=== PATIENT | male | born 1955 | race Hispanic/Latino ===

== ENCOUNTER 2019-05-07 16:19 | Inpatient (IN) ==
[2019-05-07] MEDS ORDERED: M.V.I.-12 10 ML, FOLIC ACID 1 MG, MAGNESIUM SULFATE 1 GM, THIAMINE 100 MG in NS 1,000 ML IV ONE (16:36)
[2019-05-07] MEDS ORDERED: VANCOMYCIN 1 GM/NS 1 GM/250 ML IVPB IV ONE (16:36)
[2019-05-07] MEDS ORDERED: ZOSYN 4.5 GM in NS 100 ML IV ONE (16:36)
[2019-05-07 17:44] LABS: ALLEN TEST YES; BE -2.7 mmoll (-3.0-3.0); BLOOD TYPE ARTERIAL; HCO3-(ACT) 22.7 mmoll (20.0-26.0); METHB 1.3 % (0.0-1.5); O2(CT) 17.8 mL/dL (15.0-23.0); O2HB 93.3 % (95.0-99.0); PCO2(98.6) 30 mmHg (35-45); PO2(98.6) 67 mmHg (60-100); SAMPLE BLOOD; SAO2 96.2 % (95.0-100.0); THB 13.6 g/dL (11.5-17.4); pH(98.6) 7.44 (7.35-7.45)
[2019-05-07 17:46] LABS: MODALITY ROOM AIR
[2019-05-07] MEDS ORDERED: HUMULIN R IV ONE (18:08)
--- NOTE | 2019-05-07 18:39 | Diag Imaging Result Doc PS360 ---
EXAM: CHEST-PORTABLE INDICATION: AMS TECHNIQUE: One view COMPARISON: None. FINDINGS: Inspiration is suboptimal. The lungs are grossly clear. There is no discrete pleural fluid collection or pneumothorax. There is cardiomegaly. Central vasculature is unremarkable. IMPRESSION: Cardiomegaly but no definite acute chest pathology by plain radiograph. Electronically signed by Cornel Manule 05/07/2019 6:37 PM
--- NOTE | 2019-05-07 18:42 | PROVIDER DOCUMENTATION ---
This chart was entered by Vandana Briones Scribe, acting as scribe for Waqar Caputo MD. HPI-Rash/Wound/ReCheck - General Chief Complaint: Extremity Pain Stated Complaint: WOUND TO FOOT Time Seen by Provider: 05/07/19 16:24 Source: EMS, other (friend) Allergies/Adverse Reactions: Allergies Allergy/AdvReac Type Severity Reaction Status Date / Time No Known Allergies Allergy Verified 05/07/19 17:23 Home Medications: Home Medication List Medication Instructions Recorded Confirmed Last Taken Type Metformin [Glucophage] 500 mg PO BID 05/07/19 05/07/19 Unknown History - History of Present Illness-Dermatology Nature of Presenting Problem: Patient is a 63 year old male who presents to the ED via EMS with skin wounds to bilateral feet. EMS states family reported the wounds have gradually worsened. Friend states patient does not take his diabetic medications. EMS states patient's FSBS was 425. Location: reports: feet (bilateral) Quality: reports: none Severity: reports: moderate Onset/Duration: reports: gradual Timing: reports: still present, getting worse Context/Associated Symptoms: reports: other (skin wounds) Locality of [place]: Home Similar Symptoms Previously?: Yes Recently seen or treated by another doctor?: Yes Review of Systems - Adult - REVIEW OF SYSTEMS - ADULT Constitutional: reports: no symptoms reported Eyes: reports: no symptoms reported Ears, Nose, Mouth & Throat: reports: no symptoms reported Cardiovascular: reports: no symptoms reported Respiratory: reports: no symptoms reported Gastrointestinal: reports: no symptoms reported Genitourinary: reports: no symptoms reported Musculoskeletal: reports: no symptoms reported Integumentary: reports: skin sores/ulcer (skin wounds to bilateral feet.). denies: hives, itching Neurological: reports: no symptoms reported Psychiatric: reports: no symptoms reported Endocrine: reports: no symptoms reported Hematologic/Lymphatic: reports: no symptoms reported Allergic/Immunologic: reports: no symptoms reported All Other Systems: Reviewed and Negative Past History - Adult - PAST MEDICAL HISTORY-ADULT Review of Records: reports: Nursing Assessment Review Major Childhood Illnesses: reports: denies history Cardiovascular: reports: denies history Respiratory: reports: denies history Gastrointestinal: reports: denies history Obstetrical/Gynecological: reports: denies history Genitourinary: reports: denies history Musculoskeletal: reports: denies history Neurological: reports: denies history Psychiatric: reports: denies history Endocrine/Immune: reports: Diabetes Other Conditions: reports: denies history - PRIOR SURGERIES/PROCEDURES Surgical/Procedure History: reports: reviewed, not pertinent - IMMUNIZATION STATUS Childhood Immunizations: See Nurse Assessment Flu Vaccine: See Nurse Assessment - FAMILY HISTORY Family History: reviewed, not pertinent - SOCIAL HISTORY Smoking: denies Substance Use: denies Physical Exam-General - PHYSICAL EXAM-ADULT Initial Vital Signs Reviewed: Yes - CONSTITUTIONAL General Appearance: alert, no apparent distress. negative: lethargic - HEAD, EARS, NOSE, MOUTH & THROAT HENMT: normocephalic/atraumatic, moist mucous membranes. negative: angioedema - RESPIRATORY Respiratory: chest non-tender, lungs clear, normal breath sounds. negative: crackles, rhonchi, wheezing - CARDIOVASCULAR Cardiovascular: normal peripheral pulses, regular rate, rhythm. negative: tachycardia - GASTROINTESTINAL (ABDOMEN) Abdominal Exam: normal bowel sounds, non tender, soft. negative: guarding, rebound - MUSCULOSKELETAL Extremity: erythema (left foot extending to ankle.), swelling (base of left foot.), other (gangrene present to left 2nd toe. 2 cm skin ulcer to planter aspect of left foot about 1 cm deep. discoloration to right foot. 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 2 cm skin ulcer to planter aspect of left foot about 1 cm deep. discoloration to right foot.) - PSYCHIATRIC Psych/Mental Status: normal mood/affect. negative: anxious, paranoid Progress - PLAN OF CARE/RESULTS Progress/Plan/Lab Results: Laboratory Results - last 24 hr 05/07/19 05/07/19 05/07/19 17:23 17:30 18:21 WBC 12.87 H RBC 4.59 L Hgb 13.3 L Hct 38.8 L MCV 84.5 MCH 29.0 MCHC 34.3 RDW Std Deviation 12.1 Plt Count 385 MPV 9.9 Immature Gran % (Auto) 0.5 Neut % (Auto) 79.3 H Lymph % (Auto) 8.6 L [place] % (Auto) 11.3 H Eos % (Auto) 0.0 Baso % (Auto) 0.3 Immature Gran # (Auto) 0.06 H Neut # (Auto) 10.21 H Lymph # (Auto) 1.11 L [place] # (Auto) 1.45 H Eos # (Auto) 0.00 Baso # (Auto) 0.04 PT INR PTT (Actin FS) Specimen Type ARTERIAL Sample Site R RADIAL pH 7.44 pCO2 30 L pO2 67 HCO3 22.7 Base Excess -2.7 Oxyhemoglobin 93.3 L ABG O2 Sat (Calculated) 17.8 ABG O2 Saturation 96.2 ABG Carboxyhemoglobin 1.70 ABG Methemoglobin 1.3 Varun Test YES A-a O2 Difference 45.0 Total Hemoglobin 13.6 Lactate 1.30 Blood Gas Modality ROOM AIR FiO2 % 21.0 POC Glucose 341 H Plasma Lactate 05/07/19 05/07/19 05/07/19 18:21 18:21 18:37 WBC RBC Hgb Hct MCV MCH MCHC RDW Std Deviation Plt Count MPV Immature Gran % (Auto) Neut % (Auto) Lymph % (Auto) [place] % (Auto) Eos % (Auto) Baso % (Auto) Immature Gran # (Auto) Neut # (Auto) Lymph # (Auto) [place] # (Auto) Eos # (Auto) Baso # (Auto) PT 16.6 H INR 1.32 PTT (Actin FS) 35.0 Specimen Type Sample Site pH pCO2 pO2 HCO3 Base Excess Oxyhemoglobin ABG O2 Sat (Calculated) ABG O2 Saturation ABG Carboxyhemoglobin ABG Methemoglobin Varun Test A-a O2 Difference Total Hemoglobin Lactate Blood Gas Modality FiO2 % POC Glucose 288 H Plasma Lactate 1.6 Orders Category Date Time Status Finger Stick Blood Sugar (ED) DIRECTED Care 05/07/19 16:32 Active Nursing- Obtain EKG once Care 05/07/19 16:32 Active Saline Loc NOW Care 05/07/19 16:32 Active Wound Care DIRECTED Care 05/07/19 17:04 Active Diabetic Diet Diet 05/07/19 17:16 Active NPO Except MEDICATIONS Diet 05/08/19 00:01 Active CHEST-PORTABLE [RAD] Stat Exams 05/07/19 16:34 Completed FOOT COMPLETE LEFT [RAD] Stat Exams 05/07/19 16:35 Completed ABG [RESP] Routine Lab 05/07/19 17:30 Completed ACETONE SERUM [CHEM] Stat Lab 05/07/19 18:21 Received ALCOHOL BLOOD Stat Lab 05/07/19 18:21 Received AMYLASE [CHEM] Stat Lab 05/07/19 18:21 Received BLOOD CULTURE [BLDCUL] Stat Lab 05/07/19 18:22 Results C REACTIVE PROT QUANT [CHEM] Stat Lab 05/07/19 18:21 Received CBC WITH ELECTRONIC DIFF [HEME] Stat Lab 05/07/19 18:21 Completed COMPREHENSIVE METABOLIC PANEL [CHEM] Stat Lab 05/07/19 18:21 Received LACTATE, PLASMA [CHEM] Stat Lab 05/07/19 18:21 Completed LIPASE [CHEM] Stat Lab 05/07/19 18:21 Received MAGNESIUM [CHEM] Stat Lab 05/07/19 18:21 Received PRO B-NATRIURETIC PEPTIDE Stat Lab 05/07/19 18:21 Received PROTIME WITH INR [COAG] Stat Lab 05/07/19 18:21 Completed PTT [COAG] Stat Lab 05/07/19 18:21 Completed SED RATE [HEME] Stat Lab 05/07/19 18:21 Received TROPONIN T Stat Lab 05/07/19 18:21 Received URINALYSIS W/POSS RFLX CULT [URINALYSIS] Stat Lab 05/07/19 16:34 Uncollected URINE DRUG SCREEN Stat Lab 05/07/19 16:34 Uncollected WOUND CULTURE INC GRAM STAIN [RM] Stat Lab 05/07/19 16:37 Uncollected phos [PHOSPHORUS] [CHEM] Stat Lab 05/07/19 18:21 Received Insulin Human Regular [Humulin R] Med 05/07/19 18:08 Discontinued 10 unit IV NOW ONE Mvi [M.v.i.-12] 10 ml Med 05/07/19 16:36 Discontinued Folic Acid 1 mg Magnesium Sulfate 1 gm Thiamine 100 mg 0.9% Sodium Chloride Inj [Ns] 1,000 ml IV NOW Piperacillin/Tazobactam [Zosyn] 4.5 gm Med 05/07/19 16:36 Discontinued 0.9% Sodium Chloride Inj [Ns] 100 ml IV NOW Vancomycin 1 gm/Ns Med 05/07/19 16:36 Discontinued 1 gm in 250 ml IV NOW EKG [EKG] Stat Ther 05/07/19 16:32 Ordered Result Diagrams: 05/07/19 18:21 - REASSESSMENT Reassessment #1 Time Reassessed: 18:39 Status: improving (Given IVF bolus, banana bag, IV vanc/zosyn, IV insulin) - EKG 1 Time of EKG reading by physician:: 18:40 EKG Read and Signed by:: Waqar Caputo EKG Interpretation (*Must complete 3 of following elements*): Normal Rate: 83 Rhythm: NSR [place]: normal QRS: normal [place] Interval: normal ST Wave: normal - CONSULTS/PCP/HOSPITALIST Notification #1 *Consult/PCP/Hospitalist*: Dr. Sandoval Time Discussed: 16:58 Reason/Comments: Dr. Caputo consulted with Dr. Sandoval about patient. Consult Disposition: Will see in ED (plans on BKA or similar tomorrow. Asks to admit to hospitalist, NPO after midnight. Clean wounds with mari solutions and wet to dry dressing changes.) #2 Consult: KIM Driscoll hospitalist paged at [phone] Time Discussed: 18:54 (A[place]oto returned call) Consult Disposition: Will see in ED Departure - Departure Date of Disposition Decision: 05/07/19 Time of Disposition Decision: 18:40 DIAGNOSIS: Gangrene of left foot, Type 2 diabetes, uncontrolled, with cellulitis of foot Hyperglycemia due to type 2 diabetes mellitus Qualifiers: Diabetes mellitus senior living insulin use: without emt intermediate use Qualified Code(s): E11.65 - Type 2 diabetes mellitus with hyperglycemia Disposition: ADMITTED INPATIENT 09 Certified Medical Emergency: Emergent Condition: Serious Referrals and Follow-Ups: None,PCP [Primary Care Provider] - - Critical Care Note This patient required my direct & personal management of CC.: No Attestation - Physician/ JATINDER Attestation Patient care was provided by Advanced Practice Provider:: No The physician spent face to face time with patient:: Yes Advanced Practice Provider documentation review:: Supervising physician onsite and consulted in the evaluation and care of this patient. The physician did have a face to face encounter with the patient. This chart was documented by the indicated scribe, (Vandana Briones Scribe) and accurately reflects the services I performed and decisions made by Patito lynch Kent A., MD, as attested by the provider's signature.
--- NOTE | 2019-05-07 18:44 | Diag Imaging Result Doc PS360 ---
EXAM: FOOT COMPLETE LEFT INDICATION: osteomyelitis TECHNIQUE: 3 views COMPARISON: None. FINDINGS: There is extensive soft tissue edema around the foot and there is subcutaneous gas at the plantar and dorsal aspect of the forefoot. There is bony erosion at the head of the proximal phalanx of the second toe indicating osteomyelitis. However, it could be chronic. Please correlate clinically. There is evidence of prior fracture that has healed involving the third metatarsal. There also potentially erosive changes at the plantar aspect of the base of the proximal phalanx of the first toe. This is best seen on the lateral view. There are bulky fragmented undersurface calcaneal osteophytes and osteophytes at the dorsum of the midfoot. No discrete fracture is appreciated. IMPRESSION: 1.Extensive soft tissue edema with subcutaneous emphysema at the dorsum and plantar aspect of the midfoot indicating cellulitis. 2.Erosive changes at the head of the second proximal phalanx and at the plantar base of the first proximal phalanx, which is suspicious for osteomyelitis. Electronically signed by Cornel Manuel 05/07/2019 6:41 PM
[2019-05-07 18:46] LABS: INR 1.32; PROTIME 16.6 Seconds (11.0-16.0)
[2019-05-07 18:48] LABS: BASO# 0.04 X1000 (0.0-0.2); BASO% 0.3 % (0.0-0.8); HEMATOCRIT 38.8 % (42.0-52.0); HEMOGLOBIN 13.3 g/dL (14.0-18.0); IMM GRAN# 0.06 X1000 (0.0-0.04); IMM GRAN% 0.5 % (0.0-0.5); LYMPH# 1.11 X1000 (1.2-3.4); LYMPH% 8.6 % (20.5-51.1); MCHC 34.3 g/dL (33-37); MCV 84.5 FL (81-99); MONO# 1.45 X1000 (0.11-0.59); MONO% 11.3 % (1.7-9.3); MPV 9.9 FL (7.4-10.4); NEUT# 10.21 X1000 (1.4-6.5); NEUT% 79.3 % (42.2-75.2); PLT 385 X1000 (130-400); RBC 4.59 XMIL (4.7-6.1); RDW 12.1 % (11.5-14.5); WBC 12.87 X1000 (4.8-10.8)
[2019-05-07 19:00] LABS: ESTIMATED GFR > 60
[2019-05-07 19:08] LABS: AGAP 15; ALB/GLOB RATIO 0.5; ALBUMIN 2.6 g/dL (3.5-5.0); ALKALINE PHOSPHATASE 138 U/L (32-122); AMYLASE 27 U/L (20-200); BUN 13 mg/dL (8-22); C REACTIVE PROT QUANT 243.49 mg/L (0.00-5.00); CALCIUM 8.3 mg/dL (8.8-10.2); CHLORIDE 87 mmol/L (98-107); COSMO 265; CREATININE 0.7 mg/dL (0.7-1.2); GLUCOSE 373 mg/dL (70-104); GOT 55 U/L (10-34); GPT 45 U/L (10-44); LIPASE 28 U/L (13-60); PHOSPHORUS 2.7 mg/dL (2.7-4.5); POTASSIUM 4.2 mmol/L (3.5-5.1); SODIUM 124 mmol/L (136-145); TCO2 22 mmol/L (25-35); TOTAL BILIRUBIN 0.35 mg/dL (0.20-1.00); TOTAL PROTEIN 7.8 g/dL (6.3-8.3)
[2019-05-07 19:25] LABS: ACETONE SERUM SMALL (NEGATIVE)
--- NOTE | 2019-05-07 19:36 | GENERAL SURGERY CONSULTATION ---
DATE: 05/07/2019 REQUESTING PHYSICIAN: ER. REASON FOR CONSULTATION: Left foot diabetic foot ulcer. HISTORY OF PRESENT ILLNESS: A 63-year-old male presenting with a foot wound. He has had issues with wounds before. He has had previous amputations at outlying facilities in [place]. He is coming in for this wound. He is being currently evaluated by the emergency department. PAST MEDICAL HISTORY: Diabetes. PAST SURGICAL HISTORY: Previous amputations. ALLERGIES: None recorded. HOME MEDICATIONS: Being compiled. FAMILY HISTORY: Reviewed. SOCIAL: Reviewed. REVIEW OF SYSTEMS: Full 14 systems reviewed and negative except as specified in HPI. PHYSICAL EXAMINATION: Vital Signs: Patient is currently afebrile. His vital signs are stable. General: No acute distress. HEENT: Normocephalic, atraumatic. Pupils equal, round, and reactive to light. Mucous membranes moist. Oropharynx benign. Neck: Supple. Trachea midline. Cardiovascular: Regular rate and rhythm. Lungs: Grossly clear. Abdomen: Soft, nontender, nondistended. Extremities: Previous amputation noted to the right foot. The 4th and 5th toes appear to be amputated. Left foot has a wound to the plantar surface that penetrates pretty deep into the area. It is being cultured. There are ischemic changes noted to the distal aspects of the 2nd, 3rd, and 4th digits. There is swelling noted on the foot. Vascular: There is at least a biphasic dorsalis pedis to the right and triphasic posterior tibial to the right. On the left, there is at least a triphasic dorsalis pedis noted. Neurologic: Grossly intact. Skin: As noted above. LABORATORY: Pending. IMAGING: Pending. ASSESSMENT AND PLAN: A 63-year-old gentleman with likely diabetic foot ulcer with potential gangrene. 1. Diabetic foot ulcer with gangrene. At this time, he likely will need an amputation. We will need to make him n.p.o. and put him on strong antibiotics. He will be admitted by the hospitalist. Will clean the wound with Vashe for right now, but again, this will likely require some degree of debridement, if not an amputation. cc: Blair Sandoval MD
--- NOTE | 2019-05-07 19:46 | EKG Report ---
Test Performed on : 05/07/2019 6:31:04 PM Test Reason : short of breath Blood Pressure : / mmHG Vent. Rate : 085 BPM Atrial Rate : 085 BPM P-R Int : 122 ms QRS Dur : 070 ms QT Int : 358 ms P-R-T Axes : 061 038 050 degrees QTc Int : 426 ms Normal sinus rhythm. Normal ECG No previous ECGs available Unconfirmed Result
[2019-05-07 20:11] LABS: URINE SOURCE CLEAN CATCH
[2019-05-07 20:16] LABS: BILIRUBIN URINE NEGATIVE (NEGATIVE); BLOOD URINE TRACE (NEGATIVE); COLOR YELLOW; GLUCOSE URINE >1000 mg/dL (NEGATIVE); KETONE URINE 60 mg/dL (NEGATIVE); LEUKOCYTES URINE NEGATIVE (NEGATIVE); NITRITE URINE NEGATIVE (NEGATIVE); PROTEIN URINE 30 mg/dL (NEGATIVE); SP GRAVITY URINE 1.034; TURBIDITY URINE CLEAR (CLEAR); UROBILINOGEN URINE NORMAL (NORMAL)
[2019-05-07 20:20] LABS: UR EPITHELIAL CELLS <10 /HPF (<10); URINE BACTERIA NEGATIVE /HPF; URINE RBC <10 /HPF (<10); URINE WBC <10 /HPF (<10)
[2019-05-07 20:45] LABS: UR AMPHETAMINES QUAL NONE DETECTED (NONE DETECT); UR BARBITUATES QUAL NONE DETECTED (NONE DETECT); UR BENZODIAZEPIN QUAL NONE DETECTED (NONE DETECT); UR CANNABINOIDS QUAL NONE DETECTED (NONE DETECT); UR COCAINE QUAL NONE DETECTED (NONE DETECT); UR METHADONE QUAL NONE DETECTED (NONE DETECT); UR OPIATES QUAL NONE DETECTED (NONE DETECT); UR OXYCODONE QUAL NONE DETECTED (NONE DETECT); UR PCP QUAL NONE DETECTED (NONE DETECT)
[2019-05-07] MEDS ORDERED: TYLENOL PO PRN (21:05)
[2019-05-07] MEDS ORDERED: INVANZ 1 GM/NS 1 GM/50 ML IVPB IV SCH (21:05)
[2019-05-07] MEDS: HEPARIN SUBQ SCH (21:48)
[2019-05-07] MEDS: HUMALOG SUBQ SCH (21:49)
[2019-05-07] MEDS: LANTUS INSULIN SUBQ SCH (21:49)
[2019-05-07] MEDS: MORPHINE IV PRN (22:17)
[2019-05-07] MEDS: NS 1,000 ML IV SCH (22:17)
[2019-05-08] MEDS: OXY IR PO PRN (00:04)
[2019-05-08] MEDS: NS 1,000 ML IV SCH ×3 (05:05→12:22)
--- NOTE | 2019-05-08 05:14 | HISTORY AND PHYSICAL ---
PRIMARY CARE PHYSICIAN: None. REASON FOR ADMISSION: Left foot swelling and purulent discharge, which patient alleges has been ongoing for 2 weeks. He has also admits to having a preceding blister on the plantar surface of his foot and some fever and chills. Patient admits to having polyuria, polydipsia, intermittent blurred vision for several months. He also states that he had fever and chills yesterday which necessitated a visit to the ER at the behest of his friend. He admits thathe has very diminished sensation in his feet and has minimal pain in the left foot. Otherwise, he denies any cardiorespiratory, GI or complaints. He admits noncompliance with his medication. REVIEW OF SYSTEMS: 12 system review was done. Positive findings per HPI except he states that he may have inadvertently stepped on some foreign body several weeks ago on the left foot, but is not sure. FH : Pt. denies family history of DM SH: + tobacco and ETOH use. No illicit drugs. Labs Alcohol level is normal. Foot x-ray done showed extensive soft tissue edema with subcutaneous emphysema of the dorsum and plantar aspects of the midfoot, indicating cellulitis, with erosive changes of the head of the 2nd proximal phalanx and at the base of the 1st proximal phalanx, suspicious for osteomyelitis. Chest film essentially benign. PHYSICAL EXAMINATION: VITAL SIGNS: Heart rate is 96. The patient appears to be febrile to touch. Respiratory rate 16. His blood pressure is 130/70. GENERAL: He is a middle-aged man who is calm, pleasant, oriented to person and time. Normal mood and affect. HEAD: Normocephalic, atraumatic. EYES: PERRLA. EOMI. Anicteric and not pale. ENT: Exam is grossly normal. No central cyanosis. NECK: Supple. No JVD or carotid bruit. No thyromegaly. CHEST: Clear on auscultation. Good air entry both lung funes. CARDIOVASCULAR: First and second sounds heard. No gallops, murmurs, or rubs. Rhythm is regular. ABDOMEN: Full, soft, nontender. No mass or -megaly. Bowel sounds are normal. RECTAL: Exam deferred at this time. EXTREMITIES: The patient has grade 1 to 2 clubbing of his fingers. No peripheral cyanosis. No profound edema of extremities distally. Pulses good volume, regular, symmetrical. The patient's right foot shows area of amputation of the 4th and 5th toes. There appears to have some interdigital macerated skin between the 2nd and 3rd toes. No evidence of gangrene. No swelling. The left foots is is exuding profound purulent discharge from Mid L plantar area measuring about 2x3cm. This area appears to be a ruptured bullae. The patient does not seem to be in any pain or distress which,for me, signifies some degree of severe diabetic neuropathy. 2nd and 3rd L toes are also macerated with mild dorsal erythema of the L foot,but no swelling noted. NEUROLOGICAL: Exam otherwise is grossly normal. No focal deficits appreciated. SKIN: See above, but otherwise unremarkable elsewhere. MUSCULAR: Exam grossly normal. ASSESSMENT: 1. Severe diabetic foot infection of the left foot, including osteomyelitis, gangrene of the 2nd toe, with possible deep tissue myositis. We will plan to start patient on Invanz and vancomycin for broad-spectrum coverage. Dr. Snadoval was consulted to see patient and schedule patient for surgery for extensive debridement and possible amputation of 1 or more toes. 2. Type 2 diabetes, uncontrolled. Start patient on intravenous fluids, Lantus, and sliding scale. Discontinue metformin. The patient will need extensive diabetic education. A1c is pending. cc: Nina Torres MD MTDAlondra
--- NOTE | 2019-05-08 06:20 | GENERAL SURGERY PROGRESS NOTE ---
DATE: 05/08/2019 SUBJECTIVE: Patient is having some pain in his left leg. OBJECTIVE: Vital Signs: Patient is currently afebrile. His vital signs are stable. General: No acute distress. HEENT: Normocephalic, atraumatic. Pupils equal, round, reactive to light. Mucous membranes moist. Oropharynx benign. Neck: Supple. Trachea midline. Cardiovascular: Regular rate and rhythm. Lungs: Grossly clear. Abdomen: Soft, nontender, nondistended. Extremities: Left leg with dressing intact. No significant change. Vascular: All extremities perfused. Neurologic: Grossly intact. Skin: Wound as noted above. LABORATORY: Reviewed from last night. Electrolytes have significant abnormalities including a sodium of 124. X-ray suggests osteomyelitis. ASSESSMENT AND PLAN: A 63-year-old male with diabetic foot ulcer left foot. 1. Diabetic foot ulcer. At this time, he likely needs an amputation. Potential is amputation of multiple toes versus [id number] amputation, even potentially need to have a wound VAC on him if we do just the toes, which we may start with 1st, to see how it heals. 2. Hyponatremia. At this time with significant decrease in his sodium may not be able to do surgery. Will have to follow up with Anesthesia. Will try to post him for today. cc: Blair Sandoval MD
[2019-05-08 06:35] LABS: BASO# 0.03 X1000 (0.0-0.2); BASO% 0.3 % (0.0-0.8); EOS# 0.05 X1000 (0.0-0.7); EOS% 0.5 % (0.0-10.0); HEMATOCRIT 35.7 % (42.0-52.0); HEMOGLOBIN 12.2 g/dL (14.0-18.0); IMM GRAN# 0.05 X1000 (0.0-0.04); IMM GRAN% 0.5 % (0.0-0.5); LYMPH# 1.34 X1000 (1.2-3.4); LYMPH% 13.6 % (20.5-51.1); MCH 29.3 PG (27-31); MCHC 34.2 g/dL (33-37); MCV 85.6 FL (81-99); MONO% 11.1 % (1.7-9.3); MPV 9.7 FL (7.4-10.4); NEUT# 7.31 X1000 (1.4-6.5); PLT 352 X1000 (130-400); RBC 4.17 XMIL (4.7-6.1); RDW 12.1 % (11.5-14.5); WBC 9.88 X1000 (4.8-10.8)
[2019-05-08] MEDS: HUMALOG SUBQ SCH ×5 (06:44→20:07)
[2019-05-08 06:50] LABS: HEMOGLOBIN A1C 11.6 % (4.8-6.0)
[2019-05-08 07:10] LABS: AGAP 12; BUN 9 mg/dL (8-22); CALCIUM 7.8 mg/dL (8.8-10.2); CHLORIDE 97 mmol/L (98-107); COSMO 265; CREATININE 0.5 mg/dL (0.7-1.2); ESTIMATED GFR > 60; GLUCOSE 165 mg/dL (70-104); POTASSIUM 3.5 mmol/L (3.5-5.1); SODIUM 131 mmol/L (136-145); TCO2 22 mmol/L (25-35)
[2019-05-08] MEDS: MORPHINE IV PRN (08:20)
[2019-05-08] MEDS ORDERED: VANCOMYCIN IV PER PHARMACY MISC SCH (08:45)
[2019-05-08] MEDS ORDERED: ZOSYN 4.5 GM in NS 100 ML IV SCH (08:45)
[2019-05-08] MEDS ORDERED: XYLOCAINE-MPF 2% ONE (09:28)
[2019-05-08] MEDS ORDERED: DIPRIVAN 1% ONE (09:28)
[2019-05-08] MEDS ORDERED: VERSED ONE (09:42)
--- NOTE | 2019-05-08 10:09 | PROGRESS NOTE ---
DATE: 05/08/2019 SUBJECTIVE: This morning Mr. Gonsalez refers to be doing well. Still has some pain in the left foot. He has been evaluated by Surgery and there is a potential possibility of surgery today. OBJECTIVE: Vital Signs: Blood pressure is 142/83, pulse of 79, respiration is 16, temperature is 98.4 degrees. General Exam: Mr. Gonsalez is a 63-year-old male. He is in bed. No cardiopulmonary distress. HEENT: Mucosa is pink and moist. Anicteric. Acyanotic. Neck: Supple. Chest: Clear to auscultation. No crepitations. No rhonchi. Cardiovascular: Regular rate and rhythm. No murmurs, no rubs, no gallops. GI: Abdomen is soft, nontender. Bowel sounds present. Extremities: No pedal edema. The left lower extremity is in sterile wrap. When you take it out, it is remarkable swollen. The foot is slightly swollen. The 2nd and the 3rd toes look purplish. The worse is the 2nd toe. There is a foul smell oozing purulence on the 2nd toe just medial to the big toe. LABORATORY DATA: WBC is down to 9.88, hemoglobin is 12.2, platelet count of 352. Chemistry is also reviewed. Sodium is 131, potassium is 3.5, chloride 97, bicarbonate is 22, glucose is 165. Patient's A1c is 11.6. So far, blood culture is growing gram-positive cocci. IMAGING STUDIES: A chest x-ray was unremarkable. An x-ray of the left foot shows extensive soft tissue edema with subcutaneous emphysema. There is also erosive changes at the head of the 2nd proximal phalanx and the base of the 1st proximal phalanx, which is suspicious for osteomyelitis. ASSESSMENT: 1. Diabetic foot infection of the left lower extremity associated with possible osteomyelitis. The patient is currently on intravenous antibiotics. We have changed the Invanz to Zosyn for a broader coverage, including Pseudomonas. We have also added vancomycin for methicillin- resistant Staphylococcus aureus. I have consulted Infectious Disease to help us with also the management. 2. Severe uncontrolled diabetes mellitus with presenting A1c of 11.6. It appears Mr. Gonsalez was only on metformin. Obviously, this has been withheld. We will continue with insulin regimen over here during the hospital course. I think eventually he is going to be needing insulin at least for the short term. 3. Suspected osteomyelitis of the 2nd and the 1st proximal phalanx of the toes. Surgery has evaluated Mr. Gonsalez, and there is a potential for surgery today. It appears there is contemplation of either doing multiple digit amputation versus below-knee amputation. 4. Hyponatremia, improving. 5. Gram-positive cocci in blood 1/2; unsure if it is contamination. However, looking at the foot, it is very possible there is a true infection. The foot Gram stain also shows some gram- positives. Patient is already on vancomycin and Infectious Disease has been consulted. We are pending the final culture report, including the identification and sensitivity. PLAN: In general, I think Mr. Gonsalez is fairly stable. He is a very bad diabetic, severely uncontrolled, who comes in with a diabetic foot which Surgery plans to intervene on today. His current EKG shows normal sinus rhythm. His chest x-ray is unremarkable. He denies any chest pain. He denies any chronic heart conditions. No chronic liver. No chronic kidney pathologies. He is currently not on any anticoagulation. We think Mr. Gonsalez is medically stable for the surgical intervention. cc: Tru Page MD
[2019-05-08] MEDS ORDERED: FENTANYL ONE (10:18)
[2019-05-08] MEDS: LANTUS INSULIN SUBQ SCH (12:20)
[2019-05-08] MEDS: HEPARIN SUBQ SCH ×3 (12:22→20:07)
--- NOTE | 2019-05-08 13:30 | OPERATIVE NOTE ---
PROCEDURE DATE : 05/08/2019 PREOPERATIVE DIAGNOSIS: Osteomyelitis of left foot. POSTOPERATIVE DIAGNOSIS: Osteomyelitis of left foot. PROCEDURES PERFORMED: 1. Transmetatarsal amputation of second and third left lower extremity digits. 2. Debridement of skin and subcutaneous tissue and muscle, 20 sq cm. 3. Placement of wound VAC. SURGEON: Dr. Blair Sandoval STRADDLE TRUCK OPERATOR: None. ANESTHESIA: IV MAC plus spinal. FINDINGS: Purulence noted in the wound tracking above the metatarsal heads. COMPLICATIONS: None at the time of this dictation. ESTIMATED BLOOD LOSS: 5 mL. SPECIMEN REMOVED: Culture and 2 toes. DRAINS: None. Wound VAC placed. BRIEF HISTORY: This is a 63-year-old male with wound to his left foot. He needed to have it amputated. We elected to try to go for toe amputations since he had good perfusion to try to avoid below the knee, but he may ultimately require below the knee, and we discussed this with the patient. We discussed the risks, benefits and alternatives. All questions were answered. DESCRIPTION OF PROCEDURE: After informed consent was obtained, the patient was brought to the operating theatre, placed in supine position. Prior to positioning, a spinal anesthesia was placed without complication. The left leg was prepped and draped in sterile fashion. After the time-out, we turned our attention to the left leg. There was purulence draining and gangrene in the toes, second and third digits. We made an incision above these, carried down to the bone. We transected off the proximal phalange. I removed the toes completely. He had a plantar wound that tracked with purulence to the metatarsals and purulence that was going above the metatarsals on the dorsal aspect. We made an incision over both of these to get rid of the purulence. I elected to transect the metatarsal heads midway of the second and third digits. We then debrided skin, subcutaneous tissue and muscle sharply and excised it with approximately 20 sq cm. Once we debrided back to healthy tissue, I elected to place a wound VAC. We placed it with black sponge and Tegaderm and closed it, bridged it over to the dorsal aspect of the foot and connected to wall suction and held seal. The patient tolerated the procedure well and was transferred back to the recovery room. cc: Blair Sandoval MD
[2019-05-08] MEDS: ZOSYN 3.375 GM in NS 50 ML IV SCH ×3 (15:23→20:09)
--- NOTE | 2019-05-08 15:33 | INFECTIOUS DISEASE CONSULT REP ---
DATE: 05/09/2019 The patient had just come back from surgery and I was unable to get a history from him. No family member was present. The information I did get was from the patient computer. CONCLUSION: The patient had amputation of toes 2 and 3 on the left foot. The VAC has been placed on the foot. The x-ray showed both cellulitis and osteomyelitis of the left foot. The patient's Gram stain from the left foot showed gram-positive cocci gram-negative cocci and gram-positive rods. Cultures are pending. RECOMMENDATIONS: I agree with treating the patient with vancomycin and Zosyn pending culture results. DISCUSSION: The patient had been having swelling and purulent drainage from his left foot. He also was having fever and chills. His laboratory studies show a CBC with a white count of 9880, hemoglobin 12.2, platelet count 352,000, creatinine is 0.5 GFR is greater than 60 alkaline phosphatase is 138. Chest x-ray shows cardiomegaly and clear lungs. X-ray of the left foot showed cellulitis and osteomyelitis. PAST MEDICAL HISTORY/REVIEW OF SYSTEMS: This was taken from Dr. Torres's history and physical. The patient had been having polyuria, polydipsia, blurred vision. The patient also had diminished sensation in his feet and there was minimal pain in the left foot. He has been noncompliant with his medications. MEDICATIONS: The only home medication the patient took was Glucophage. PHYSICAL EXAMINATION: Vital Signs: Temperature is 98.2 degrees, pulse 121, respirations 18, blood pressure 149/93. Patient weighs 144 pounds. General: This is an ill-appearing middle-aged male. He has just returned from surgery and he is very lethargic. Head/eyes/ears/nose/throat: No drainage noted from the nose or ears. Neck: No stiffness. Lungs: Clear to auscultation. Cardiovascular: Regular heart rate. Abdomen: Soft and nontender. Extremities: The patient's right foot had 3 toes remaining. There was no there was some erythema but no drainage coming from the foot. The patient's left foot had the VAC on where toes 2 and 3 were amputated. Neurologic: The patient is lethargic. He had just come from surgery. There was no tremor. Integument: No rash. Thank you for the consult. cc: Terrence Ordonez MD
[2019-05-08] MEDS ORDERED: VANCOMYCIN 1,650 MG in NS 250 ML IV ONE (17:00)
[2019-05-08] MEDS: PERIDEX MT SCH (20:07)
[2019-05-09] MEDS: OXY IR PO PRN ×3 (00:48→20:25)
[2019-05-09] MEDS: ZOSYN 3.375 GM in NS 50 ML IV SCH ×4 (03:20→20:22)
[2019-05-09] MEDS: HUMALOG SUBQ SCH ×4 (06:51→20:36)
[2019-05-09 07:06] LABS: HEMATOCRIT 32.4 % (42.0-52.0); HEMOGLOBIN 10.9 g/dL (14.0-18.0); MCH 29.7 PG (27-31); MCHC 33.6 g/dL (33-37); MCV 88.3 FL (81-99); MPV 9.6 FL (7.4-10.4); RBC 3.67 XMIL (4.7-6.1); RDW 12.7 % (11.5-14.5); WBC 9.04 X1000 (4.8-10.8)
[2019-05-09 07:21] LABS: AGAP 11; ALBUMIN 1.8 g/dL (3.5-5.0); BUN 7 mg/dL (8-22); CALCIUM 7.6 mg/dL (8.8-10.2); CHLORIDE 99 mmol/L (98-107); COSMO 266; CREATININE 0.7 mg/dL (0.7-1.2); ESTIMATED GFR > 60; GLUCOSE 160 mg/dL (70-104); PHOSPHORUS 2.9 mg/dL (2.7-4.5); POTASSIUM 3.6 mmol/L (3.5-5.1); SODIUM 132 mmol/L (136-145); TCO2 22 mmol/L (25-35)
[2019-05-09] MEDS: MORPHINE IV PRN (07:53)
[2019-05-09] MEDS: LANTUS INSULIN SUBQ SCH (09:44)
[2019-05-09] MEDS: PERIDEX MT SCH ×2 (09:44→20:22)
[2019-05-09] MEDS: HEPARIN SUBQ SCH ×2 (09:45→20:22)
--- NOTE | 2019-05-09 12:17 | PROGRESS NOTE ---
DATE: 05/09/2019 SUBJECTIVE: This morning Mr. Gonsalez referred to be doing well. He underwent amputation of 2 digits of the lower right foot yesterday. OBJECTIVELY: Current vital signs: Blood pressure is 146/78, pulse of 73, respiration is 18, temperature is 98.2 degrees. General: Mr. Gonsalez is a 63-year-old gentleman. He is in bed, no distress. HEENT: Mucosa is pink and moist. Anicteric. Acyanotic. Neck: Supple. Chest: Good air entry bilaterally. There were no crepitations, no rhonchi. Cardiovascular: Regular rate and rhythm. No murmurs, no rubs, no gallops. Gastrointestinal: Abdomen was soft, nontender. Bowel sounds present. Extremities: No pedal edema. The left lower extremity is still in a sterile wrap, slightly swollen. The right lower extremity has amputation of the 2 lateral digits in the past. LABORATORY DATA: White cell count is 9.04, hemoglobin is 10.9, platelet count of 319,000. Chemistry is also reviewed, unremarkable. Glucose is down to 137. Blood cultures show 1 that has gram-negative carolina. The other one has both gram- positive and gram- negative. The foot culture showing gram negative x2. We are pending the cultures on the surgical specimen. CURRENT MEDICATIONS: Have all been reviewed. He is on vancomycin and Zosyn. ASSESSMENT: 1. Diabetic foot infection of the left lower extremity associated with osteomyelitis. The patient is status post amputation of the 2nd and 3rd digits of the lower extremity. 2. Gram-negative carolina and gram-positive cocci bacteremia, presumably from the diabetic foot. The patient is on Zosyn and vancomycin. Will be pending the ID and sensitivity of the pathogens. 3. Severe uncontrolled diabetes mellitus. Presenting A1c was 11.6. The patient is currently back on insulin regimen. Glucose is 137 this morning. We are going to continue with the current regimen. PLAN: In general, I think Mr. Gonsalez is doing fairly okay. He is day 1 post transmetatarsal amputation of the of the 2nd and 3rd digits on the left lower extremity. His white cell count has normalized. We are still pending the ID and sensitivity of the pathogens growing. He is currently on broad-spectrum IV antibiotics and on insulin regimen. cc: Tru Page MD [facility]
--- NOTE | 2019-05-09 14:28 | GENERAL SURGERY PROGRESS NOTE ---
DATE: 05/09/2019 SUBJECTIVE: He is doing generally well. The wound VAC did not seal, so it was removed. A Vashe gauze was placed in the wound. I unwrapped it today and looked at it. There was quite a bit of dark and necrotic tissue on the plantar aspect. The tissue between the toes in the area of resection looks okay. We will re-wrap his foot on a daily basis. We will continue with the antibiotic therapy. cc: Ender Grullon MD
[2019-05-09] MEDS: VANCOMYCIN 1,450 MG in NS 250 ML IV SCH (17:22)
[2019-05-10] MEDS: OXY IR PO PRN ×3 (03:14→17:40)
[2019-05-10] MEDS: ZOSYN 3.375 GM in NS 50 ML IV SCH ×2 (03:15→08:00)
[2019-05-10 06:37] LABS: HEMATOCRIT 31.4 % (42.0-52.0); HEMOGLOBIN 10.6 g/dL (14.0-18.0); MCH 29.4 PG (27-31); MCHC 33.8 g/dL (33-37); MCV 87.2 FL (81-99); MPV 9.3 FL (7.4-10.4); RBC 3.6 XMIL (4.7-6.1); RDW 12.5 % (11.5-14.5); WBC 8.21 X1000 (4.8-10.8)
[2019-05-10 06:59] LABS: SODIUM 130 mmol/L (136-145)
[2019-05-10 07:00] LABS: AGAP 9; ALBUMIN 1.7 g/dL (3.5-5.0); BUN 9 mg/dL (8-22); CALCIUM 7.8 mg/dL (8.8-10.2); CHLORIDE 98 mmol/L (98-107); COSMO 265; CREATININE 0.8 mg/dL (0.7-1.2); ESTIMATED GFR > 60; GLUCOSE 194 mg/dL (70-104); PHOSPHORUS 3.5 mg/dL (2.7-4.5); POTASSIUM 3.5 mmol/L (3.5-5.1); TCO2 23 mmol/L (25-35)
[2019-05-10] MEDS: HUMALOG SUBQ SCH ×7 (07:28→23:41)
[2019-05-10] MEDS: PERIDEX MT SCH ×2 (07:59→23:41)
[2019-05-10] MEDS: LANTUS INSULIN SUBQ SCH (08:00)
[2019-05-10] MEDS: HEPARIN SUBQ SCH ×2 (08:05→23:41)
--- NOTE | 2019-05-10 09:14 | GENERAL SURGERY PROGRESS NOTE ---
DATE: 05/10/2019 He is afebrile with stable hemodynamics. He still has an odor from his wound. There is quite a bit of necrotic-appearing tissue on the plantar aspect. His white count is normal. He may require more debridement of his foot. We currently are wrapping his foot using Vashe gauze since the wound VAC did not seal. Dr. Sandoval will return tomorrow for further evaluation and treatment. cc: Ender Grullon MD
--- NOTE | 2019-05-10 11:58 | PROGRESS NOTE ---
DATE: 05/10/2019 SUBJECTIVE: This morning, Mr. Gonsalez refers to be doing well. Still has some pains in the left foot. OBJECTIVE: Vital Signs: Blood pressure is 149/91, pulse of 69, respirations are 18, temperature is 98.1 degrees, the patient was saturating 98% on room air. General Examination: Mr. Gonsalez is a 63-year-old, gentleman. He was in bed. He did not seem to be in any distress. HEENT: Mucosa was pink and moist. Anicteric. Acyanotic. Neck: Supple. Chest: Good air entry bilaterally. There were no crepitations, no rhonchi. Cardiovascular: Regular rate and rhythm. No murmurs, no rubs, no gallops. GI: Abdomen was soft, nontender. Bowel sounds present. There was no hepatosplenomegaly. Extremities: No pedal edema. The left lower extremity wrap was taken down. The second and the third digits have been transmetatarsally amputated. The top wound looks very clean with very good granulation tissue. However, the plantar surface wound had some necrotic material and had some very foul smell. The right lower extremity had an old amputation of the fourth and the fifth digits. Laboratory Data: CBC is unremarkable except for normocytic anemia. Chemistry is also reviewed. Sodium is 130, the glucose is 194. Rest of chemistry is unremarkable. Patient's albumin is 1.7. So far, the foot culture from the wound swab grew Proteus mirabilis and Klebsiella pneumoniae. The blood culture grew Staphylococcus sciuri and also Sphingomonas paucimobilis. The second blood culture also grew Sphingomonas paucimobilis. The surgical specimen of the left foot is growing a gram-negative carolina. Anaerobes were not isolated. The patient's current medications have all been reviewed. He is on vancomycin per pharmacy protocol and Zosyn. ASSESSMENT: 1. Diabetic foot infection of the left lower extremity associated with osteomyelitis. The patient is status post second and third digits of the lower extremity transmetatarsally amputated. Culture has grown Proteus mirabilis and Klebsiella pneumoniae. From the swab, however, the surgical specimen itself is growing gram-negative carolina and we are pending the identification and sensitivity. 2. Sphingomonas paucimobilis and methicillin-resistant Staphylococcus aureus bacteremia. We think these were all also coming from the infected limb. The patient is on adequate antimicrobial coverage. Infectious disease is on board. 3. Severe uncontrolled diabetes mellitus with presenting A1c of 11.6. The patient is currently on insulin regimen. 4. Normocytic anemia, presumably due to anemia of chronic disease. Hemoglobin and hematocrit are stable. 5. Protein calorie malnutrition with albumin of 1.7. The patient is on a diabetic diet and also liquacel supplement. Dietary is also on board. PLAN: In general, I think Mr. Gonsalez is doing a lot better. We will continue with the current antimicrobial coverage which seems to cover all the pathogens that are growing both in his blood and in the foot. We have ordered repeat blood cultures. We have also gone up on his insulin demands for better glycemic control and we will follow up with further recommendations from the other subspecialties involved. cc: Tru Page MD [facility]
[2019-05-10] MEDS: ROCEPHIN 2 GM in NS 50 ML IV SCH (12:06)
[2019-05-10] MEDS: MORPHINE IV PRN (13:50)
[2019-05-10] MEDS: VANCOMYCIN 1,450 MG in NS 250 ML IV SCH (17:29)
[2019-05-11] MEDS: OXY IR PO PRN ×3 (05:28→22:33)
--- NOTE | 2019-05-11 05:53 | GENERAL SURGERY PROGRESS NOTE ---
DATE: 05/11/2019 Reviewed the wound. There is some necrotic tissue. The wound VAC was unable to keep a seal so they took it off, and did Vashe wet-to-dry. At this point, there is some slough in the wound, but it seems to be improving from what was described from over the weekend. We will increase the Fabián wet-to-dry to twice a day and add Santyl to see if we can enzymatically debride it. If we can get it cleaned up a little bit, we will try the wound VAC again. Otherwise, continue Fabián wet-to-dry. cc: Blair Sandoval MD [facility]
[2019-05-11] MEDS ORDERED: SANTYL OINT TOP SCH (06:00)
[2019-05-11] MEDS: HUMALOG SUBQ SCH ×7 (06:28→22:00)
[2019-05-11 07:05] LABS: HEMATOCRIT 32.3 % (42.0-52.0); MCH 29.5 PG (27-31); MCHC 34.1 g/dL (33-37); MCV 86.6 FL (81-99); MPV 9.5 FL (7.4-10.4); RBC 3.73 XMIL (4.7-6.1); RDW 12.4 % (11.5-14.5); WBC 8.41 X1000 (4.8-10.8)
[2019-05-11 07:33] LABS: AGAP 11; ALBUMIN 2.1 g/dL (3.5-5.0); BUN 8 mg/dL (8-22); CALCIUM 7.5 mg/dL (8.8-10.2); CHLORIDE 97 mmol/L (98-107); COSMO 259; CREATININE 0.8 mg/dL (0.7-1.2); ESTIMATED GFR > 60; GLUCOSE 103 mg/dL (70-104); PHOSPHORUS 3.6 mg/dL (2.7-4.5); POTASSIUM 4.3 mmol/L (3.5-5.1); SODIUM 130 mmol/L (136-145); TCO2 22 mmol/L (25-35)
[2019-05-11] MEDS: SANTYL OINT TOP SCH ×2 (08:00→12:13)
[2019-05-11] MEDS: HEPARIN SUBQ SCH ×2 (09:28→22:33)
[2019-05-11] MEDS: PERIDEX MT SCH ×2 (09:28→22:33)
[2019-05-11] MEDS: LANTUS INSULIN SUBQ SCH (09:28)
[2019-05-11] MEDS: ROCEPHIN 2 GM in NS 50 ML IV SCH ×2 (13:35→22:35)
--- NOTE | 2019-05-11 15:18 | PROGRESS NOTE ---
DATE: 05/11/2019 SUBJECTIVE: This morning, Mr. Gonsalez refers to be doing fairly okay. He says Surgery looked at the wound, and by their appreciation, it looks like the wound looks better. OBJECTIVE: Vital Signs: Blood pressure is 167/90, pulse of 70, respirations 18, temperature 98.1 degrees. Mr. Gonsalez was saturating 98% on room air. General: Mr. Gonsalez is a 63-year-old gentleman. He is in bed. No distress. HEENT: Mucosa was pink and moist. Anicteric. Acyanotic. Neck: Supple. Chest: Good air entry bilateral. There were no crepitations, no rhonchi. Cardiovascular: Regular rate and rhythm. No murmurs, no rubs, no gallops. GI: Abdomen was soft, nontender. Bowel sounds present. Extremities: No pedal edema. The left lower extremity was in sterile dressing. It had just been dressed, so I did not look at the wound. REWORKER: The patient was awake, alert, and oriented. LABORATORY DATA: WBC was 8.41, hemoglobin 11.0, platelet count of 405,000. Chemistry is also reviewed and unremarkable, except for sodium of 130, glucose was 228. ASSESSMENT: 1. Left lower extremity diabetic foot infection with osteomyelitis. The patient is status post transmetatarsal amputation of the second and third digits. 2. Sphingomonas paucimobilis and methicillin-resistant staphylococcus aureus bacteremia, presumably coming from the foot. The patient is on intravenous antibiotics. Infectious Disease is on board. 3. Severe uncontrolled diabetes mellitus with presenting A1c of 11.6. The patient is on insulin regimen. 4. Normocytic anemia due to chronic disease. Hemoglobin and hematocrit are stable. 5. Protein calorie malnutrition. Will continue with supplements. 6. Proteus mirabilis and Klebsiella pneumoniae infection of the left lower extremity. The patient is status post digit amputation, and is on ideal antimicrobial coverage. In general, I think Mr. Gonsalez is doing well. Glucose is better controlled on insulin regimen. We are going to continue titrating it up for better glycemic control. He has been changed to intravenous ceftriaxone by Infectious Disease. Will be pending the repeat blood cultures for sterilization. cc: Tru Page MD
[2019-05-12] MEDS: OXY IR PO PRN (04:45)
--- NOTE | 2019-05-12 05:57 | INFECTIOUS DISEASE PROGRESS NO ---
DATE: 05/11/2019 PRESENT ILLNESS: The patient is status post amputation of the 2nd and 3rd toes of the left foot. The foot has cellulitis as well as osteomyelitis. From the foot grew Proteus mirabilis, Sphingomonas paucimobilis, Staphylococcus sciuri. Also present was Proteus and Klebsiella from the patient's left foot as well. MEDICATIONS: The patient is receiving Rocephin and vancomycin. This is day 1 of Rocephin and day 2 of vancomycin. DIAGNOSTIC STUDIES: There is no new radiographic study. CBC shows a white count of 8410, hemoglobin 11, platelet count 405,000. Creatinine is 0.8, GFR is greater than 60. PHYSICAL EXAMINATION: Vital Signs: Temperature is 98.1 degrees, pulse 70, respirations 18, blood pressure 167/90. General: This is a somewhat ill-appearing middle-aged male. He is in no acute distress. Head, Eyes, Ears, Nose, and Throat: He can hear my spoken words and see near objects. He does not have any white coating of his tongue. Neck: No stiffness. Lungs: Clear to auscultation. Cardiovascular: Regular heart rate. Abdomen: Soft, nontender. Extremities: The patient's left foot is still somewhat swollen. The wound where the 2nd and 3rd toes were amputated for the most part has beefy red tissues, but there is an area that has a foul odor and purulent drainage. The patient's right foot does not have any erythema or purulence at this time. Neurologic: The patient is awake. He can move his extremities. There is no tremor. ASSESSMENT AND PLAN: The patient is status post surgery of a left foot cellulitis and osteomyelitis. The VAC was tried but was unable to maintain a good suction. Therefore, the dressings to the foot are going to be done every 12 hours. For now, I plan to continue both the Rocephin and vancomycin intravenously. It may well be that the patient will require 6 weeks of IV antibiotics. The patient's organism is susceptible to oxacillin, so we can stop the vancomycin and instead use high-dose Rocephin to get both the Staphylococcus and the Sphingomonas paucimobilis and the Proteus and Klebsiella. The patient will be able to be treated with high-dose Rocephin at a dose of 2 g IV every 12 hours. COMORBIDITIES: 1. The patient is a diabetic. 2. He had been somewhat noncompliant with his medications. cc: Terrence Ordonez MD [facility]
[2019-05-12] MEDS: HUMALOG SUBQ SCH ×7 (07:00→22:51)
--- NOTE | 2019-05-12 07:21 | GENERAL SURGERY PROGRESS NOTE ---
DATE: 05/12/2019 SUBJECTIVE: Patient seems to be doing okay. OBJECTIVE: Vital Signs: Patient is currently afebrile. His vital signs stable. GENERAL: No acute distress.Cardiovascular: Regular rate and rhythm. Lungs: Grossly clear. Abdomen: Soft, nontender, nondistended. Extremities: Amputation site seems to be improving with the Santyl and Vashe. ASSESSMENT/PLAN: We will continue to monitor and hopefully get some more enzymatic and mechanical debridement so we can place a wound VAC on it, but otherwise we will continue current treatment. cc: Blair Sandoval MD
[2019-05-12] MEDS: LANTUS INSULIN SUBQ SCH (08:19)
[2019-05-12] MEDS: HEPARIN SUBQ SCH ×2 (08:20→20:48)
[2019-05-12] MEDS: PERIDEX MT SCH ×2 (08:20→20:48)
[2019-05-12 09:45] LABS: INR 1.27; PROTIME 16.1 Seconds (11.0-16.0)
[2019-05-12] MEDS ORDERED: NS 250 ML ONE (10:11)
[2019-05-12] MEDS: ROCEPHIN 2 GM in NS 50 ML IV SCH ×2 (11:55→22:50)
[2019-05-12] MEDS: SANTYL OINT TOP SCH (11:57)
[2019-05-12] MEDS: HUMULIN 70/30 SUBQ SCH ×2 (12:00→20:47)
--- NOTE | 2019-05-12 12:26 | INFECTIOUS DISEASE PROGRESS NO ---
DATE: 05/12/2009 The patient has cellulitis and osteomyelitis of the foot and bacteremia. He has grown from the foot Proteus Sphingomonas, Staph, Proteus and Klebsiella from the blood sphingomonas. The patient has had a PICC put in today that I put in a consult for social service for patient to do at home. Rocephin 2 g IV every 12 hours for 41 days to complete a 6-week treatment course for the patient's foot infection. Some of the side effects of Rocephin including rash and diarrhea have been explained to the patient. He agrees with treatment. The patient is going to be given appointment to come to my office in approximately 21 days and then after that appointment, another appointment 20 days after the 1st appointment. This will complete his 6 week treatment course and at that time antibiotics will be stopped and the PICC can be removed. cc: Terrence Ordonez MD [facility]
--- NOTE | 2019-05-12 13:40 | PROVIDER PROGRESS NOTE ---
- Subjective Mr Gonsalez refers to fell ok. No new complains today. Still has some pains in his left foot. Surgery has reviewed the wound today. Physical Exam Objective Vital Signs - 8 hr 05/12/19 07:41 05/12/19 13:01 Temperature 97.9 F 97.9 F Pulse Rate 72 67 Respiratory Rate 14 16 Blood Pressure 149/91 149/66 O2 Sat by Pulse Oximetry 97 99 - Constitutional General Appearance: appears well, alert, no apparent distress - NECK Neck: non-tender, full range of motion, supple, normal inspection - RESPIRATORY Respiratory: chest non-tender, lungs clear, normal breath sounds, no pleuratic chest pain, no respiratory distress, no accessory muscle use - CARDIOVASCULAR Cardiovascular: normal peripheral pulses, regular rate, rhythm, no edema, no gallop, no JVD, no murmur - GASTROINTESTINAL (ABDOMEN) Abdominal Exam: normal bowel sounds, non tender, soft, no organomegaly, no pulsatile mass - GENITOURINARY Male Genitalia: deferred - MUSCULOSKELETAL Extremity: other (left foot is in steril dressing which looks minimally soiled with some smell.) - NEUROLOGIC Neurologic: test baker II-XII nml as tested, no motor/sensory deficits - PSYCHIATRIC Psych/Mental Status: normal mood/affect, normal thought content, normal thought process, oriented x 3 Active Medications Generic Name Dose Route Start Last Admin Trade Name Freq PRN Reason Stop Dose Admin Acetaminophen 650 mg 05/07/19 21:05 05/09/19 20:25 Tylenol PO 650 mg Q6H PRN PRN Administration Fever or Pain Chlorhexidine Gluconate 15 ml 05/08/19 21:00 05/12/19 08:20 Peridex MT 15 ml BID SERGIO Administration Collagenase 1 gm 05/11/19 06:00 05/12/19 11:57 Santyl Oint TOP 1 applic DAILY SERGIO Administration Heparin Sodium (Porcine) 5,000 unit 05/07/19 21:05 05/12/19 08:20 Heparin SUBQ 5,000 unit Q12H SERGIO Administration Ceftriaxone Sodium 2 gm/ 50 mls @ 100 mls/hr 05/11/19 23:00 05/12/19 11:55 Sodium Chloride IV 100 mls/hr Q12H SERGIO Administration Insulin Human Isoph/Insulin Regular 35 unit 05/12/19 09:00 05/12/19 12:00 Humulin 70/30 SUBQ Not Given QAM [facility] Insulin Human Isoph/Insulin Regular 25 unit 05/12/19 21:00 Humulin 70/30 SUBQ QPM [facility] Insulin Human Lispro 0 units 05/07/19 21:05 05/12/19 11:58 Humalog SUBQ Not Given 0700,1100,1600,2100 [facility] Protocol Insulin Human Lispro 5 units 05/10/19 11:00 05/12/19 11:54 Humalog SUBQ 5 units TID CC SERGIO Administration Morphine Sulfate 4 mg 05/07/19 21:05 05/10/19 13:50 Morphine IV 4 mg Q4H PRN PRN Administration PAIN >5 Ondansetron HCl 4 mg 05/07/19 21:05 Zofran IV Q4H PRN PRN Nausea And Vomiting Oxycodone HCl 5 mg 05/07/19 21:05 05/12/19 04:45 Oxy Ir PO 5 mg Q4H PRN PRN Administration Pain Laboratory Results - last 24 hr 05/11/19 05/11/19 05/12/19 16:27 21:03 06:36 PT INR POC Glucose 160 H 188 H 148 H 05/12/19 05/12/19 09:22 11:48 PT 16.1 H INR 1.27 POC Glucose 130 H Microbiology 05/10/19 08:15 Blood Culture - Preliminary Blood NO GROWTH AFTER 48 HOURS 05/10/19 08:11 Blood Culture - Preliminary Blood NO GROWTH AFTER 48 HOURS - Assessment & Plan (1) Diabetic infection of left foot Status: Acute Plan: foot culture positive for proteus Mirabilis and Klebsiella pneumoniae. Patient is on Rocephin. S/P I and D with surgery. Day 4 post op (2) Acute osteomyelitis of toe of left foot Status: Acute Plan: Cultures of the feet nopted. Blood cultures report also noted. Patient is s/p transmetatarsal amputation of the 2nd and 3rd left digits. Day 4 post up Continue with current antibiotic coverage. Plan to continue Rocephin for 41 more days for a total of 6 weeks as per ID notes (3) Bacteremia due to methicillin susceptible Staphylococcus aureus (MSSA) Status: Acute Plan: Blood culture also grew Sphingomonas Paucimobilis sensitive to ceftriaxone. Repeat blood cultures negative. Will order PICC Line today for out patient antibiotic therapy. (4) Protein-calorie malnutrition, moderate Status: Acute Plan: Dietitian on board. (5) Hyperglycemia due to type 2 diabetes mellitus Status: Acute Plan: Presenting A1c: 11.6 patient currently normoglycemic will switch insulin to Humalin 70/30 35 units Am and 25units PM for affordability. Continue with sliding scale for additional insulin coverage. 5 units of lispro with meals. - Progress Note Disposition: Will get PICC line today. -ID recommends 6 weeks therapy with Rocephin. 41 more days to go. -Pending final recommendations from surgery on discharge and follow up instructions. Patient will be discharged on insulin and metformin for diabetes management.
[2019-05-13] MEDS: SANTYL OINT TOP SCH ×2 (05:33→08:20)
--- NOTE | 2019-05-13 05:56 | GENERAL SURGERY PROGRESS NOTE ---
DATE: 05/13/2019 SUBJECTIVE: Patient seems to be doing okay. OBJECTIVE: Vital Signs: Patient is currently afebrile. His vital signs are stable. General: No acute distress. Cardiovascular: Regular rate and rhythm. Lungs: Grossly clear. Abdomen: Soft, nontender, nondistended. Extremities: Amputation site improving slowly with Vashe and Santyl. ASSESSMENT AND PLAN: A 63-year-old gentleman status post transmetatarsal amputation of the 2nd and 3rd toe. Postoperative state. At this time, we will continue local wound care. He may need a return trip to the operating room in the near future for further debridement. cc: Blair Sandoval MD
[2019-05-13] MEDS: HUMALOG SUBQ SCH ×5 (06:43→21:35)
[2019-05-13] MEDS: PERIDEX MT SCH ×2 (08:19→21:36)
[2019-05-13] MEDS: HEPARIN SUBQ SCH ×2 (08:20→21:36)
[2019-05-13] MEDS: HUMULIN 70/30 SUBQ SCH ×2 (08:21→21:35)
[2019-05-13] MEDS: COZAAR PO SCH (10:26)
[2019-05-13] MEDS: ROCEPHIN 2 GM in NS 50 ML IV SCH ×2 (10:26→21:34)
--- NOTE | 2019-05-13 13:42 | INFECTIOUS DISEASE PROGRESS NO ---
DATE: 05/13/2019 PRESENT ILLNESS: The patient is status post amputation of the 2nd and 3rd toes. The patient the patient's foot has cellulitis as well as osteomyelitis. The patient also has a bacteremia. MEDICATIONS: The patient is receiving Rocephin 2 g IV every 12 hours. OBJECTIVE: Vital Signs: Temperature 97.9 degrees, pulse 66, respirations 16, blood pressure 136/77. General: This is a somewhat ill-appearing, middle-aged male. He is in no acute distress. Head, eyes, ears, nose, and throat: He can hear my spoken words and see near objects. I did not see any white patches in his mouth. Neck: No pain with movement of his neck. Lungs: Clear to auscultation. Cardiovascular: Regular heart rate. Abdomen: Soft and nontender. Extremities: I removed the dressing from the patient's left foot and the wound appears to be still not getting any smaller and now more of the tissue is necrotic or devitalized than it was earlier. Neurologic: Patient is alert. He can move his extremities. There is no tremor. LAB AND X-RAY: There is no new lab or radiographic study for today. ASSESSMENT AND PLAN: The patient has left foot cellulitis and osteomyelitis. The patient also has a bacteremia. The patient's wound, in my opinion, it is looking worse. I talked to Dr. Sandoval about this and he said that he will need to debride the patient's foot again in the next few days. My plan is to continue Rocephin. I have gone ahead and obtained another culture from the patient's foot. COMORBIDITIES: The patient is a diabetic and he has been noncompliant with medications in the past. cc: Terrence Ordonez MD
[2019-05-13] MEDS: OXY IR PO PRN (16:43)
--- NOTE | 2019-05-13 17:22 | PROGRESS NOTE ---
DATE: 05/13/2019 SUBJECTIVE: Today Mr. Gonsalez refers to be doing fairly okay. Denies any new complaints, except for some pains in the left lower extremity. OBJECTIVE: Vital signs: Blood pressure is 165/86, pulse of 68, respiration is 18, temperature 98 degrees, patient was saturating 99% on room air. General: Mr. Gonsalez is a 63-year-old gentleman. He is in bed. No distress. Mucosa is pink and moist. Anicteric. Acyanotic. Neck is supple. Chest was clear to auscultation. No crepitations. No rhonchi. Cardiovascular: Regular rate and rhythm. There were no murmurs, no rubs, no gallops. Gastrointestinal: Abdomen was soft, nontender. Bowel sounds present. Extremities: No pedal edema. The left lower extremity was still in a sterile dressing which looked soiled with some purulence. LABORATORY DATA: None for today. Glucose is 185. The patient is currently on ceftriaxone 2 g every 12 hours and insulin. ASSESSMENT: 1. Left diabetic foot infection. The patient is status post I D. Cultures prior to surgery grew Proteus mirabilis and Klebsiella pneumoniae. The patient is currently on Rocephin. Today is day 5 postoperative. 2. Acute osteomyelitis of the left 2nd and 3rd toes. The patient is status post transmetatarsal amputation of the 2nd and the 3rd toes. The wound bed seems to have some slough in it, as per Wound Care notes. Also, ID seems to think that the foot looks worse than before. Surgery is planning to take Mr. Gonsalez into OR in the next couple days. 3. Methicillin-sensitive Staphylococcus aureus and Sphingomonas paucimobilis bacteremia. Likely from the foot infection. The patient is on ceftriaxone. Subsequent blood cultures have been negative. A PICC line was placed yesterday. 4. Protein-calorie malnutrition. Patient is on diet supplements. 5. Diabetes mellitus with presenting A1c of 11.6. The patient is currently on 70/30 regimen, and glucoses are within acceptable ranges. 6. Hypertension. Patient is on losartan, and we will continue to titrate for good pressure blood pressure control. In general, Mr. Gonsalez is a 63-year-old gentleman. He has been in the hospital for the past for the past 6 days because of a bad diabetic foot infection. He underwent surgery on 05/08/2019, where a transmetatarsal amputation of the 2nd and 3rd lower extremity digits were done. Postoperatively, he seems to be doing well. Surgery is following and ID is following. There is the feeling that the foot may need more debridement. Surgery recommends to take Mr. Gonsalez to the OR in the next couple days, so we are going to follow up with them. For now, we are going to continue with the current antimicrobial coverage. We will continue to monitor his glucose control. DISPOSITION: I understand Mr Gonsalez does not have any insurance, so he cannot have any home health. He is going to need antibiotics for an extended period of time because of osteomyelitis and bacteremia, as per Dr. Ordonez' notes. He would therefore need to give himself the antibiotics at home or to have to come to the hospital outpatient infusion for therapy. I think he is also going to be needing to go to the [facility] for the wound care. His current insulin has been switched to 70/30 to make it more affordable on outpatient basis. We will follow up with Surgery and ID to determine when the patient will be stable enough to go home. cc: Tru Page MD MTDD
[2019-05-14] MEDS: ROCEPHIN 2 GM in NS 50 ML IV SCH ×3 (03:23→22:40)
[2019-05-14] MEDS: OXY IR PO PRN ×2 (05:46→16:54)
--- NOTE | 2019-05-14 06:19 | GENERAL SURGERY PROGRESS NOTE ---
DATE: 05/14/2019 SUBJECTIVE: Patient doing well. No major issues. OBJECTIVE: Vital Signs: Patient is currently afebrile. His vital signs are stable. General: No acute distress. Cardiovascular: Regular rate and rhythm. Lungs: Grossly clear. Abdomen: Soft, nontender, and nondistended. Extremities: Amputation site still with some slough and necrotic tissue, but overall looks better. ASSESSMENT AND PLAN: A 63-year-old gentleman status post transmetatarsal amputation of 2nd and 3rd left toe. Postop state at this time, we will continue local wound care, but we will plan on taking him to the operating room tomorrow midday for further debridement. We will make him NPO after midnight. cc: Blair Sandoval MD
[2019-05-14] MEDS: HUMALOG SUBQ SCH ×4 (07:42→21:11)
[2019-05-14] MEDS: HUMULIN 70/30 SUBQ SCH ×2 (10:34→21:12)
[2019-05-14] MEDS: PERIDEX MT SCH ×2 (10:36→21:11)
[2019-05-14] MEDS: COZAAR PO SCH (10:36)
[2019-05-14] MEDS: HEPARIN SUBQ SCH ×2 (10:37→21:11)
[2019-05-14] MEDS: SANTYL OINT TOP SCH (10:42)
--- NOTE | 2019-05-14 19:57 | PROGRESS NOTE ---
DATE: 05/14/2019 SUBJECTIVE: This patient is resting comfortably in bed. He is complaining of left foot pain. The plan is to get this patient to the OR tomorrow for more debridement. I have informed the patient in [place] all this information, and he agreed with that. He also sign the documents so he can have surgery. OBJECTIVE: Vital Signs: Temperature 98.4 degrees, pulse 69, respiratory rate 20, blood pressure 150/90, oxygen saturation 99 on room air. HEENT: Head normocephalic, no trauma. PERRLA. Neck: Supple. No JVD. No masses. Central trachea. Cardiovascular: RRR. Chest: Clear to auscultation. No wheezing. No rales. Abdomen: Soft, nontender, nondistended. No hepatosplenomegaly. Extremities: No edema. Left lower extremity is not covered. He has dressing just came out. He has some small purulence coming out from his 2nd and 3rd wound and is edematous with some signs of redness. Neurological: The patient is sleepy, but arousable, oriented x3. LABORATORY: Glucose 187. ASSESSMENT AND PLAN: 1. Left diabetic foot infection. Status post I D. Cultures prior to the surgery grew Proteus mirabilis and Klebsiella pneumonia. The patient is currently on antibiotics with Rocephin. Today is #6. 2. Acute osteomyelitis of the left 2nd and 3rd toes, status post transmetatarsal amputation of the 2nd and 3rd toes. The wound bed seems to have some secretion still. The dressing came out. The plan is to go to the OR tomorrow with this patient. 3. Methicillin-sensitive Staphylococcus aureus and Sphingomonas paucimobilis bacteremia, likely from the foot infection. This patient is on ceftriaxone. A PICC line has been placed 2 days ago. Since that, the repeated blood cultures are negative. 4. Protein-calorie malnutrition, moderate. Continue with his diet. 5. Type 2 diabetes with a presenting hemoglobin A1c of 11.6. This patient currently is on a 70/30 regimen, and glucose level has been more acceptable. 6. Hypertension. Continue with same management. cc: Gurwinder Richards MD
[2019-05-14] MEDS ORDERED: INSULIN PEN NEEDLES ONE (21:10)
[2019-05-15] MEDS: HUMALOG SUBQ SCH ×4 (06:44→21:00)
[2019-05-15 07:21] LABS: BASO# 0.03 X1000 (0.0-0.2); BASO% 0.3 % (0.0-0.8); EOS# 0.06 X1000 (0.0-0.7); EOS% 0.7 % (0.0-10.0); HEMATOCRIT 36.1 % (42.0-52.0); HEMOGLOBIN 11.9 g/dL (14.0-18.0); IMM GRAN# 0.02 X1000 (0.0-0.04); IMM GRAN% 0.2 % (0.0-0.5); LYMPH# 1.41 X1000 (1.2-3.4); LYMPH% 15.6 % (20.5-51.1); MCH 28.9 PG (27-31); MCV 87.6 FL (81-99); MONO# 0.73 X1000 (0.11-0.59); MONO% 8.1 % (1.7-9.3); NEUT% 75.1 % (42.2-75.2); PLT 386 X1000 (130-400); RBC 4.12 XMIL (4.7-6.1); RDW 12.4 % (11.5-14.5); WBC 9.05 X1000 (4.8-10.8)
[2019-05-15 07:50] LABS: AGAP 13; ALB/GLOB RATIO 0.5; ALBUMIN 2.4 g/dL (3.5-5.0); ALKALINE PHOSPHATASE 86 U/L (32-122); BUN 12 mg/dL (8-22); CALCIUM 8.5 mg/dL (8.8-10.2); CHLORIDE 97 mmol/L (98-107); COSMO 264; CREATININE 0.7 mg/dL (0.7-1.2); ESTIMATED GFR > 60; GLUCOSE 89 mg/dL (70-104); GOT 32 U/L (10-34); GPT 30 U/L (10-44); POTASSIUM 3.8 mmol/L (3.5-5.1); SODIUM 132 mmol/L (136-145); TCO2 22 mmol/L (25-35); TOTAL BILIRUBIN 0.25 mg/dL (0.20-1.00); TOTAL PROTEIN 7.6 g/dL (6.3-8.3)
--- NOTE | 2019-05-15 08:38 | GENERAL SURGERY PROGRESS NOTE ---
DATE: 05/15/2019 SUBJECTIVE: Patient seems to be doing okay. OBJECTIVE: Vital Signs: Patient is currently afebrile. His vital signs stable. General: No acute distress. Cardiovascular: Regular rate and rhythm. Lungs: Grossly clear. Abdomen: Soft, nontender. Extremities: Dressing to the left lower extremity intact. Overall wound looks about the same. ASSESSMENT AND PLAN: A 61-year-old gentleman with amputation of left foot 2nd, 3rd toe. Postop state. At this time, we will plan on the operating room today. Discussed with him the risks, benefits, alternatives of debridement. We will make further recommendations after this procedure. If we can debride it back enough, we may consider placement of a wound VAC. cc: Blair Sandoval MD
[2019-05-15] MEDS: HUMULIN 70/30 SUBQ SCH ×2 (09:16→21:02)
[2019-05-15] MEDS: COZAAR PO SCH (10:22)
[2019-05-15] MEDS: SANTYL OINT TOP SCH (10:23)
[2019-05-15] MEDS: HEPARIN SUBQ SCH ×2 (10:23→21:04)
[2019-05-15] MEDS: PERIDEX MT SCH ×2 (10:24→21:06)
[2019-05-15] MEDS: ROCEPHIN 2 GM in NS 50 ML IV SCH ×2 (10:24→23:55)
[2019-05-15] MEDS: MORPHINE IV PRN (10:30)
--- NOTE | 2019-05-15 12:04 | INFECTIOUS DISEASE PROGRESS NO ---
DATE: 05/15/2019 PRESENT ILLNESS: The patient is being treated for osteomyelitis of the left foot and is status post transmetatarsal amputation of the 2nd and 3rd digits. So far, Proteus, Klebsiella and diphtheroids have all grown from that left foot. There is also a bacteremia with Staph and Sphingomonas growing. MEDICATIONS: He is receiving ceftriaxone 2 g IV every 12 hours. PHYSICAL EXAMINATION: Vital Signs: Temperature is 98.6 degrees, pulse rate 68, respiratory rate 16, blood pressure 140/83, O2 saturations 97% on room air. General: This is a somewhat ill- appearing, middle-aged man. He is lying in bed, currently in no acute distress. HEENT: Atraumatic, normocephalic. Oral mucous membranes are pink and moist. Conjunctivae are pink. Neck: Supple. Trachea is midline. Cardiovascular: Heart rate and rhythm are regular. Normal sinus rhythm on the monitor. Respiratory: Lung sounds are bilaterally clear to auscultation. No work of breathing is noted. Abdomen: Soft, round and nontender. Bowel sounds are active. Integumentary: Skin is warm and dry. There is a PICC line in place to the right upper arm. That site is without edema, erythema or drainage. There is a dressing to the left foot which is dry and intact. Neurologic: He is awake, alert, oriented, and able to move all extremities without difficulty. LABORATORY AND X-RAY: Today his white count is 9.05, hemoglobin 11.9, platelet count 386,000. Creatinine is 0.7, estimated GFR is greater than 60. Total bilirubin is 0.25, AST 32, ALT 30, alkaline phosphatase 86. No imaging reports today. ASSESSMENT AND PLAN: Mr. Flores has left foot cellulitis and osteomyelitis as well as a bacteremia. At this point, it looks as though he will be going back to the operating room today with Dr. Sandoval for another debridement so that a wound VAC can be applied. Orders have already been put in for the patient to receive IV antibiotics at home. Unfortunately, he has no coverage for treatment. [employer] is working on this. For now, we will continue the Rocephin as ordered. These plans have been discussed with and recommended by Dr. Ordonez. COMORBIDITIES: Include diabetes mellitus and noncompliance with his medical regimen. Dictated by KIM Lo for Terrence Ordonez MD cc: Terrence Ordonez MD MTDD
[2019-05-15] MEDS ORDERED: VERSED ONE (12:42)
[2019-05-15] MEDS ORDERED: FENTANYL ONE (12:42)
[2019-05-15] MEDS ORDERED: DIPRIVAN 1% ONE (12:43)
[2019-05-15] MEDS ORDERED: PEPCID IV ONE (13:15)
[2019-05-15] MEDS ORDERED: REGLAN IV ONE (13:15)
[2019-05-15] MEDS ORDERED: PEPCID ONE (13:19)
[2019-05-15] MEDS ORDERED: REGLAN ONE (13:19)
--- NOTE | 2019-05-15 14:13 | PROGRESS NOTE ---
DATE: 05/15/2019 SUBJECTIVE: Patient is resting comfortably in bed. He will go today for surgery for debridement. The patient seems to be stable. OBJECTIVE: Vital Signs: Temperature 98.7 degrees, pulse 66, respiratory rate 16, blood pressure 136/75, oxygen saturation 98 on room air. HEENT: Head normocephalic, no trauma. PERRLA. Neck: Supple. No JVD. No masses. Central trachea. Cardiovascular: Regular rate and rhythm. Chest: Clear to auscultation. No wheezing. No rales. Abdomen: Soft, nontender, nondistended. No hepatosplenomegaly. Extremities: No edema. Left lower extremity is not covered. He has a dressing that came out. I do not notice any purulence today coming out from the 2nd and 3rd toes, but it is edematous and has some signs of infection. Neurological: The patient is sleepy but arousable. He is oriented x3. LABORATORY DATA: WBC 9, hemoglobin 11.9, hematocrit 36.1, platelets 386,000. Sodium 132, potassium 3.8, chloride 97, bicarbonate 22, BUN 12, creatinine 0.8, glucose 97, calcium 8.5, albumin 2.4. ASSESSMENT AND PLAN: 1. Left diabetic foot infection status post irrigation and debridement. Cultures prior to the surgery grew Proteus mirabilis and Klebsiella pneumoniae. The patient is currently on antibiotics with Rocephin, today is #7. 2. Acute osteomyelitis of the 2nd and 3rd toes, status post transmetatarsal amputation of the 2nd and 3rd toes. He will go to the OR today pending more recommendations. 3. Methicillin-susceptible Staphylococcus aureus and Sphingomonas paucimobilis bacteremia, likely from the foot infection. Patient is on ceftriaxone. PICC line has been placed 3 days ago. Repeated cultures are negative. Likely this patient will need to be discharged home with ceftriaxone IV. 4. Protein calorie malnutrition, moderate. Continue with his diet. 5. Type 2 diabetes with a presenting hemoglobin A1c of 11.6, currently on 70/30 regimen. Glucose level has been better. 6. Hypertension. Continue with same management. cc: Gurwinder Richards MD
--- NOTE | 2019-05-15 19:49 | OPERATIVE NOTE ---
PROCEDURE DATE: 05/15/2019 PREOPERATIVE DIAGNOSIS: Left 2nd and 3rd toe amputation site wound. POSTOPERATIVE DIAGNOSIS: Left 2nd and 3rd toe amputation site wound. PROCEDURE: Debridement of skin, subcutaneous tissue, muscle and tendon, approximately 45 cm2. SURGEON: Blair Sandoval MD PUMP PRESS OPERATOR: None. ANESTHESIA: General endotracheal. INTRAOPERATIVE FINDINGS: The wound measures 15 cm x 3 cm x 2 cm. COMPLICATIONS: None at time of dictation. ESTIMATED BLOOD LOSS: 5 mL SPECIMENS: None. BRIEF HISTORY: A 63-year-old gentleman with a wound. We had done amputation for gangrene. He needed further debridement. The risks, benefits and alternatives of the procedure were discussed. All questions answered. DESCRIPTION OF PROCEDURE: After informed consent was obtained, the patient was brought to the operating theater and transferred to the supine position. General endotracheal anesthesia was then performed without complication. A formal time-out was then performed, confirming patient, date and procedure. All were in agreement. At that time attention was given to the left foot. It was prepped and draped in sterile fashion. After the time-out, we examined the wound. There was some necrotic tissue that was skin, subcutaneous tissue, muscle and tendon. We sharply debrided it and incised it with scissors, scalpel and pickups. We cleaned up the room until we debrided back to healthy viable tissue. Again, this was approximately 45 cm2 of debridement. We then placed Vashe soaked gauze into the wound and placed a sterile dressing. The patient tolerated the procedure well and was transferred back to the recovery room. cc: Blair Sandoval MD
[2019-05-15] MEDS: OXY IR PO PRN (21:07)
[2019-05-16] MEDS: MORPHINE IV PRN ×3 (05:46→18:53)
[2019-05-16] MEDS: HUMALOG SUBQ SCH ×4 (06:40→21:47)
[2019-05-16 07:15] LABS: BASO# 0.03 X1000 (0.0-0.2); BASO% 0.4 % (0.0-0.8); EOS# 0.17 X1000 (0.0-0.7); EOS% 2.1 % (0.0-10.0); HEMATOCRIT 36.2 % (42.0-52.0); HEMOGLOBIN 11.8 g/dL (14.0-18.0); IMM GRAN# 0.03 X1000 (0.0-0.04); IMM GRAN% 0.4 % (0.0-0.5); MCH 28.9 PG (27-31); MCHC 32.6 g/dL (33-37); MCV 88.7 FL (81-99); MONO# 0.71 X1000 (0.11-0.59); MONO% 8.8 % (1.7-9.3); MPV 8.8 FL (7.4-10.4); NEUT# 5.44 X1000 (1.4-6.5); NEUT% 67.3 % (42.2-75.2); PLT 340 X1000 (130-400); RBC 4.08 XMIL (4.7-6.1); RDW 12.7 % (11.5-14.5); WBC 8.08 X1000 (4.8-10.8)
[2019-05-16 07:40] LABS: AGAP 9; BUN 12 mg/dL (8-22); CALCIUM 8.1 mg/dL (8.8-10.2); CHLORIDE 100 mmol/L (98-107); COSMO 272; CREATININE 0.7 mg/dL (0.7-1.2); ESTIMATED GFR > 60; GLUCOSE 174 mg/dL (70-104); POTASSIUM 4.6 mmol/L (3.5-5.1); SODIUM 134 mmol/L (136-145); TCO2 25 mmol/L (25-35)
[2019-05-16] MEDS: SANTYL OINT TOP SCH (10:29)
[2019-05-16] MEDS: HUMULIN 70/30 SUBQ SCH ×2 (10:30→21:46)
[2019-05-16] MEDS: HEPARIN SUBQ SCH ×2 (10:30→21:47)
[2019-05-16] MEDS: COZAAR PO SCH (10:31)
[2019-05-16] MEDS: PERIDEX MT SCH ×2 (10:31→21:47)
[2019-05-16] MEDS: ROCEPHIN 2 GM in NS 50 ML IV SCH (10:46)
--- NOTE | 2019-05-16 11:51 | GENERAL SURGERY PROGRESS NOTE ---
DATE: 05/16/2019 SUBJECTIVE: The patient has had no acute complaints or events overnight. OBJECTIVE: Vital Signs: Stable. General: He is awake, alert, no acute distress. Extremities: The left foot wound was examined. The dorsal aspect appears to be healing well with fairly good granulation tissue. However, the plantar aspect still has some necrotic soft tissue with what looks to be seropurulent drainage and foul odor. LABS: White blood cell count normal. ASSESSMENT AND PLAN: A 63-year-old male with nonhealing foot wound with a wound infection. He is status post debridement. We will continue wound care with wet-to-dry Vashe gauze and broad- spectrum antibiotics. The wound may eventually need some more operative debridement prior to discharge. cc: Brandon Sanders MD
--- NOTE | 2019-05-16 13:35 | PROGRESS NOTE ---
DATE: 05/16/2019 SUBJECTIVE: The patient seems to be resting comfortably in bed. His wound has been having the dressing of his left foot wound. Dressing has been removed. He has some granulation tissue, but he has some drainage, also that looks like purulent, and some necrotic areas. Surgery Department has evaluated this patient and discussed the case with me, Wound Care will take care of this patient with a wet-to-dry Vashe gauze, but probably this patient will need more treatment in the OR. I will continue with same management, broad-spectrum antibiotics. Recent culture showed Klebsiella pneumonia and diphtheroids on the left foot, which is sensitive to this medication, ceftriaxone. OBJECTIVE: Vital Signs: Temperature 98.4 degrees, pulse 67, respiratory rate 19, blood pressure 136/83. Oxygen saturation 99 on room air. HEENT: Head normocephalic, no trauma. PERRLA. Neck: Supple. No JVD. No masses. Central trachea. Chest: Clear to auscultation. No wheezing, no rales. Abdomen: Soft, nontender, nondistended. No hepatosplenomegaly. Extremities: Left foot who was exposed today, the dressing has been removed. He has an amputation of the 2nd and 3rd toes. It does have a little bit of signs of infection with some purulent drainage and some necrotic areas, it looks better for me compared with 2 days ago. As per the surgeon, he will need more treatment in the OR, continue with wound care. ASSESSMENT AND PLAN: 1. Acute osteomyelitis of the 2nd and 3rd toes, status post transmetatarsal amputation of the 2nd and 3rd toes, status post debridement yesterday in the OR. 2. MSSA and Sphingomonas paucimobilis bacteremia. Continue with ceftriaxone. PICC line has been already placed. 3. Protein calorie malnutrition, moderate. Continue with his diet. 4. Type 2 diabetes on presentation with a hemoglobin A1c of 11.6, currently on a 70/30 regimen. Glucose level has been better. 5. Hypertension. Continue with same management. cc: Gurwinder Richards MD
[2019-05-17] MEDS: MORPHINE IV PRN ×3 (00:57→16:00)
[2019-05-17] MEDS: ROCEPHIN 2 GM in NS 50 ML IV SCH ×3 (01:19→21:56)
[2019-05-17] MEDS: OXY IR PO PRN (06:55)
[2019-05-17] MEDS: HUMALOG SUBQ SCH ×4 (06:55→21:56)
[2019-05-17] MEDS: PERIDEX MT SCH ×2 (10:52→22:04)
[2019-05-17] MEDS: COZAAR PO SCH (10:52)
[2019-05-17] MEDS: HEPARIN SUBQ SCH ×2 (10:52→22:03)
[2019-05-17] MEDS: HUMULIN 70/30 SUBQ SCH ×2 (10:53→21:55)
--- NOTE | 2019-05-17 13:03 | PROGRESS NOTE ---
DATE: 05/17/2019 SUBJECTIVE: Patient is resting comfortably in bed. No acute events overnight. Surgery Department following this patient closely. Likely he will need more debridement in the OR. OBJECTIVE: Vital Signs: Temperature 98.4 degrees, pulse 73, respiratory rate 16, blood pressure 140/79, oxygen saturation 100% on room air. HEENT: Head normocephalic, no trauma, PERRLA. Neck: Supple. No JVD. No masses. Central trachea. Chest: Clear to auscultation. No wheezing. No rales. Abdomen: Soft, nontender, nondistended. No hepatosplenomegaly. Extremities: Left foot with a dressing. Yesterday, it was removed, and he had an amputation on the 2nd and 3rd toes, which is transmetatarsal. He still has some signs of infection and purulent drainage, some necrotic areas as well. Neurological: Alert and oriented x3. No focal deficits. LABORATORY: Glucose 191. ASSESSMENT AND PLAN: 1. Acute osteomyelitis of the 2nd and 3rd toes, status post transmetatarsal amputation of the 2nd and 3rd toes, status post debridement 2 days ago in the OR per Surgery Department. We need to continue treatment here with antibiotics, wound care, and likely he will need to go to the OR for more treatment. 2. Methicillin-sensitive Staphylococcus aureus and Sphingomonas paucimobilis bacteremia. Continue with ceftriaxone. PICC line has been placed already. 3. Protein calorie malnutrition, moderate, continue with his diet. 4. Type 2 diabetes with a hemoglobin A1c of 11.6 on presentation, currently on 70/30 regimen. Glucose level has been better. 5. Hypertension. Continue with same management. cc: Gurwinder Richards MD
--- NOTE | 2019-05-17 18:36 | GENERAL SURGERY PROGRESS NOTE ---
DATE: 05/17/2019 SUBJECTIVE: The patient feels about the same. Still having some pain in his foot. OBJECTIVE: Vitals: He is afebrile. Vital signs are stable. General: He is awake, alert, oriented x3. No acute distress. Extremities: The left foot is examined. There remains a foul odor with purulent drainage and necrotic soft tissue on the plantar surface of the foot with some surrounding erythema and edema of the foot in general. The dorsal aspect of the wound does have some granulation tissue. ASSESSMENT AND PLAN: A 63-year-old male with left diabetic foot ulcer and infection. He is status post incision and drainage with debridement. It is my opinion this will require further debridement. Continue antibiotics. I will discuss with Dr. Sandoval and make him n.p.o. after midnight. cc: Brandon Sanders MD
[2019-05-18] MEDS: MORPHINE IV PRN (03:17)
--- NOTE | 2019-05-18 05:59 | GENERAL SURGERY PROGRESS NOTE ---
DATE: 05/18/2019 SUBJECTIVE: Patient seems to be doing okay. OBJECTIVE: Vital Signs: Patient is currently afebrile. His vital signs are stable. General: No acute distress. Cardiovascular: Regular rate and rhythm. Lungs: Grossly clear. Abdomen: Soft, nontender, and nondistended. Extremities: Wound reviewed. He does have some slough on the plantar aspect. Overall, the wound seems to be improving. ASSESSMENT AND PLAN: A 63-year-old gentleman with left foot diabetic foot ulcer. Left foot wound. At this time, essentially we will have to plan on debridement again in the operating room tomorrow. Judging by the operating room schedule, I do not think I can do it today. We mostly need to focus on the plantar aspect of his foot. We will continue vashe wet-to- dry, and put him back on a diabetic diet. cc: Blair Sandoval MD MTDD
[2019-05-18] MEDS: HUMALOG SUBQ SCH ×5 (06:51→21:00)
[2019-05-18 07:21] LABS: AGAP 10; BUN 11 mg/dL (8-22); CALCIUM 7.7 mg/dL (8.8-10.2); CHLORIDE 99 mmol/L (98-107); COSMO 269; CREATININE 0.8 mg/dL (0.7-1.2); ESTIMATED GFR > 60; GLUCOSE 193 mg/dL (70-104); POTASSIUM 4.5 mmol/L (3.5-5.1); SODIUM 132 mmol/L (136-145); TCO2 23 mmol/L (25-35)
[2019-05-18] MEDS: HEPARIN SUBQ SCH ×2 (10:34→20:42)
[2019-05-18] MEDS: PERIDEX MT SCH ×2 (10:34→20:42)
[2019-05-18] MEDS: COZAAR PO SCH (10:34)
[2019-05-18] MEDS: HUMULIN 70/30 SUBQ SCH ×2 (10:35→22:00)
[2019-05-18] MEDS: ROCEPHIN 2 GM in NS 50 ML IV SCH ×2 (11:26→22:56)
--- NOTE | 2019-05-18 15:11 | INFECTIOUS DISEASE PROGRESS NO ---
DATE: 05/18/2019 PRESENT ILLNESS: The patient has a left lower extremity osteomyelitis which has grown Proteus, Klebsiella, and diphtheroids. He is status post 2 surgeries to that foot with another surgery planned for tomorrow. There is also a bacteremia with staphylococcus and Sphingomonas growing. MEDICATIONS: He is receiving ceftriaxone 2 g IV every 12 hours. Based on his sterile blood cultures. Today is day 8 of treatment. PHYSICAL EXAMINATION: Vital Signs: Temperature is 98.4 degrees, pulse rate 69, respiratory rate 21, blood pressure 139/70, O2 saturation is 100% on room air. General: This is a chronically ill- appearing, middle-aged gentleman. He is lying in the bed, currently in no acute distress. HEENT: Atraumatic, normocephalic. Oral mucous membranes are pink and moist. Conjunctivae are pink. Neck: Supple. Trachea is midline. Respiratory: Lung sounds are clear to auscultation bilaterally. No work of breathing is noted. Cardiovascular: Heart rate and rhythm are regular. Normal sinus rhythm on the monitor. Abdomen: Soft, round, nontender to palpation. Bowel sounds are active. Integumentary: Skin is warm and dry. There is a PICC in place to the right upper arm. The site is without edema, erythema, or drainage. The dressing to the left foot has a small amount of clear brown drainage on the dressing with a foul odor noted. Dressing was not removed at this time. Neurologic: He is awake, alert, oriented, and able to move around in the bed independently. LABORATORY AND X-RAY: None available today. However, on the , his white count was 8.08, platelet count 340,000, hemoglobin 11.8. His chemistry today shows a creatinine of 0.8. Estimated GFR of greater than 60. No imaging reports today. ASSESSMENT AND PLAN: Mr. Flores has left foot cellulitis and osteomyelitis, and is also being treated for a bacteremia. Today is day 8 of his treatment for the bacteremia. He has had two left foot surgeries which have included transmetatarsal amputation of the second and third digits, as well as a subsequent debridement. At this point, there are plans for another surgery with debridement tomorrow. His white count has been normal and there have been no fever spikes. For now, we will continue his Rocephin as ordered. These plans have been discussed with and recommended by Dr. Ordonez. COMORBIDITIES: For the patient include diabetes mellitus and medical noncompliance. Dictated by KIM Lo for Terrence Ordonez MD cc: Terrence Ordonez MD MTDD
--- NOTE | 2019-05-18 16:40 | PROGRESS NOTE ---
DATE: 05/18/2019 Note for Mr. ballesteros just so [facility] . SUBJECTIVE: This morning Mr. Gonsalez refers to be doing okay denies any new complaints. Mr. Gonsalez has been evaluated by surgery and there is a plan for intervention tomorrow. OBJECTIVE: Vital signs: Blood pressure is 139/70, pulse of 69, respirations 21, temperature 98.4 degrees. General: Mr. Gonsalez is a 63-year-old gentleman. He is in bed in no distress. HEENT: Mucosa is pink and moist. Anicteric. Acyanotic. Neck: Supple. Chest: Good air entry bilateral. There was no crepitations no rhonchi. Cardiovascular: Regular rate and rhythm GI: Abdomen soft, non tender. Bowel sounds present. Extremities: Left foot has a dressing which is minimally soiled with some foul smelling secretion. MEDIA SERVICES COORDINATOR: Patient is awake, alert, and oriented. LABORATORY DATA: Chemistry is reviewed. Glucose is 193. CURRENT MEDICATIONS: Have all been reviewed. ASSESSMENT: 1. Diabetic foot infection of the left lower extremity. The culture has grown Proteus mirabilis and Klebsiella pneumoniae. The patient is on antimicrobial. 2. Acute osteomyelitis of the 2nd and 3rd left toes. The patient is status post transmetatarsal amputation of the 2nd and 3rd toes. 3. Methicillin sensitive staphylococcus aureus and Sphingomonas paucimobilis bacteremia. Subsequent blood cultures have been negative. 4. Diabetes mellitus with presenting A1c of 11.6. Patient is currently on 70/30. Glucose are under control. 5. Hypertension controlled. 6. Protein calorie malnutrition. Patient is on nutritional supplements. DISPOSITION: So in general Mr. Gonsalez looked clinically stable. The left foot still extruding some purulence with smell. I understand from surgery documentation that they would intervene on this tomorrow. We will follow up with them. cc: Tru Page MD
[2019-05-18] MEDS: OXY IR PO PRN (20:43)
[2019-05-19] MEDS ORDERED: D50W SYRINGE IV ONE (06:32)
[2019-05-19] MEDS: HUMALOG SUBQ SCH ×4 (06:48→21:26)
[2019-05-19] MEDS: MORPHINE IV PRN (06:53)
--- NOTE | 2019-05-19 08:46 | GENERAL SURGERY PROGRESS NOTE ---
DATE: 05/19/2019 SUBJECTIVE: Patient seems to be doing okay. OBJECTIVE: Vital Signs: Patient is currently afebrile. Vital signs are stable. General: No acute distress. Cardiovascular: Regular rate and rhythm. Lungs: Grossly clear. Abdomen: Soft, nontender, and nondistended. Extremities: Essentially, the same and still with some necrotic tissue to the left foot. ASSESSMENT AND PLAN: A 63-year-old gentleman with a diabetic foot ulcer, status post amputation of the 2nd and 3rd left toe. Postoperative state at this time. We will plan on taking him to the operating room today in the afternoon. Discussed with him the risks, benefits and alternatives. He is on scheduled antibiotics. We will plan on debridement further in the operating room. cc: Blair Sandoval MD
[2019-05-19] MEDS: HUMULIN 70/30 SUBQ SCH ×2 (10:36→21:29)
[2019-05-19] MEDS: COZAAR PO SCH (10:36)
[2019-05-19] MEDS: PERIDEX MT SCH ×2 (10:36→20:52)
[2019-05-19] MEDS: HEPARIN SUBQ SCH ×2 (10:36→20:52)
[2019-05-19] MEDS: ROCEPHIN 2 GM in NS 50 ML IV SCH ×2 (11:13→23:10)
[2019-05-19] MEDS ORDERED: DIPRIVAN 1% ONE (13:07)
[2019-05-19] MEDS ORDERED: ZOFRAN ONE (14:27)
[2019-05-19] MEDS ORDERED: XYLOCAINE-MPF 2% ONE (14:27)
--- NOTE | 2019-05-19 14:53 | OPERATIVE NOTE ---
PROCEDURE DATE: 05/19/2019 PREOPERATIVE DIAGNOSIS: Left diabetic foot ulcer. POSTOPERATIVE DIAGNOSIS: Left diabetic foot ulcer. PROCEDURE: Debridement of skin, tendon, muscle, subcutaneous tissue, and fascia, approximately 45 square centimeters. SURGEON: Blair Sandoval M.D. SEISMIC OBSERVER: None. ANESTHESIA: General endotracheal. OPERATIVE FINDINGS: Wound tracking out of the first and fourth toes. COMPLICATIONS: None at the time of this dictation. ESTIMATED BLOOD LOSS: 10 mL. SPECIMEN REMOVED: Nonclinical tissue. BRIEF HISTORY: A 63-year-old gentleman who I have done multiple debridements on, needing further debridement. The risks, benefits, and alternatives of the procedure were discussed. All questions were answered. DESCRIPTION OF PROCEDURE: After informed consent was obtained, the patient was brought to the operative theater, transferred to the operative table, placed in the supine position. General endotracheal anesthesia was then performed without complication. A formal time-out was then performed, confirming the patient, date, and procedure. All were in agreement. At that time, attention was given to the left foot. It had been prepped and draped in a sterile fashion. After the time-out, we turned our attention to it. He had some necrotic skin, muscle, subcutaneous tissue, and tendon that we sharply debrided and excised. This totaled approximately 45 square centimeters. The wound does now start to tunnel around the bone of the first toe at the metatarsal and to the metatarsal of the fourth toe. I am concerned that this is going to start to involve this. The wound appears to be getting bigger. We did debride it back sharply, and excised the tissue, and then placed a Vashe-soaked gauze in place with sterile dressing. The patient will require likely a transmetatarsal amputation, which we will try to do on . cc: Blair Sandoval MD
--- NOTE | 2019-05-19 16:16 | PROGRESS NOTE ---
DATE: 05/19/2019 SUBJECTIVE: This morning, I saw Mr. Gonsalez. He was awaiting to have surgery. He refers to be doing okay. No new complaints. OBJECTIVE: Vital signs: Blood pressure is 167/87, pulse of 67, respirations 16, temperature 98.1 degrees. General: Mr. Gonsalez is a 63-year-old gentleman. He was in bed, no distress. HEENT: Mucosa is pink and moist. Anicteric. Acyanotic. Neck: Supple. Chest: Clear to auscultation. No crepitations. No rhonchi. Cardiovascular: Regular rate and rhythm. Abdomen: Soft, nontender. Bowel sounds present. Extremities: The left foot was in sterile dressing, which was slightly soiled and very offensive smell. QUALITY ASSURANCE ANALYST: Patient was awake, alert, and oriented. LABORATORY DATA: None for today. Glucose was 89 this morning. ASSESSMENT: 1. Diabetic left foot infection with culture positive for Proteus mirabilis and Klebsiella pneumoniae. The patient is on antibiotics. 2. Acute osteomyelitis of the 2nd and 3rd left toes. Patient is status post amputation. The wound does not seems to be healing well. Patient is pending another surgical intervention today. 3. MSSA and Sphingomonas paucimobilis bacteremia. Subsequent blood cultures negative. 4. Diabetes mellitus with presenting A1c of 11.6. The patient is currently on insulin regimen. Glucoses are under control. 5. Hypertension, controlled. 6. Protein calorie malnutrition. Patient is on nutritional supplement. At the time of the dictation, it appears that Mr. Gonsalez had already finished the surgery. I reviewed the report, and it appears that the 1st and 4th toe metatarsal bone seems to be also involved. They have done extensive debridement. However, it appears that Surgery plans a transmetatarsal amputation on . cc: Tru Page MD
[2019-05-19] MEDS: OXY IR PO PRN ×2 (16:31→20:51)
[2019-05-20] MEDS: OXY IR PO PRN ×2 (04:20→21:09)
[2019-05-20] MEDS: HUMALOG SUBQ SCH ×3 (06:30→18:11)
[2019-05-20 07:16] LABS: BASO# 0.04 X1000 (0.0-0.2); BASO% 0.6 % (0.0-0.8); EOS# 0.19 X1000 (0.0-0.7); EOS% 2.9 % (0.0-10.0); HEMATOCRIT 36.3 % (42.0-52.0); HEMOGLOBIN 11.7 g/dL (14.0-18.0); IMM GRAN# 0.02 X1000 (0.0-0.04); IMM GRAN% 0.3 % (0.0-0.5); LYMPH# 1.37 X1000 (1.2-3.4); MCH 28.7 PG (27-31); MCHC 32.2 g/dL (33-37); MCV 89.2 FL (81-99); MONO# 0.73 X1000 (0.11-0.59); MONO% 11.2 % (1.7-9.3); MPV 9.1 FL (7.4-10.4); NEUT# 4.17 X1000 (1.4-6.5); PLT 292 X1000 (130-400); RBC 4.07 XMIL (4.7-6.1); RDW 12.6 % (11.5-14.5); WBC 6.52 X1000 (4.8-10.8)
[2019-05-20 07:54] LABS: AGAP 13; BUN 11 mg/dL (8-22); CALCIUM 7.8 mg/dL (8.8-10.2); CHLORIDE 98 mmol/L (98-107); COSMO 268; CREATININE 0.7 mg/dL (0.7-1.2); ESTIMATED GFR > 60; GLUCOSE 172 mg/dL (70-104); POTASSIUM 4.7 mmol/L (3.5-5.1); SODIUM 132 mmol/L (136-145); TCO2 21 mmol/L (25-35)
[2019-05-20] MEDS: HEPARIN SUBQ SCH ×2 (09:30→21:09)
[2019-05-20] MEDS: COZAAR PO SCH (09:30)
[2019-05-20] MEDS: HUMULIN 70/30 SUBQ SCH (09:31)
[2019-05-20] MEDS: PERIDEX MT SCH ×2 (09:31→21:09)
[2019-05-20] MEDS: ROCEPHIN 2 GM in NS 50 ML IV SCH ×4 (11:18→23:31)
[2019-05-20] MEDS ORDERED: CATHFLO IV ONE (11:57)
[2019-05-20] MEDS ORDERED: STERILE WATER INJ. INJ ONE (11:57)
--- NOTE | 2019-05-20 12:35 | GENERAL SURGERY PROGRESS NOTE ---
DATE: 05/20/2019 SUBJECTIVE: The patient has had no acute events overnight. Dr. Sandoval's operative reports were reviewed from yesterday. OBJECTIVE: He is afebrile. Vital signs are stable.Extremities: The left foot is dressed. LABORATORY: White blood cell count normal. Electrolytes reviewed unremarkable. ASSESSMENT/PLAN: 61-year-old male with left diabetic foot infection which is unresolved with significant necrotic tissue involving multiple metatarsals. Dr. Sandoval's is planning a transmetatarsal amputation tomorrow. The patient wants to discuss this with Dr. Sandoval tomorrow. cc: Brandon Sanders MD
--- NOTE | 2019-05-20 14:20 | PROGRESS NOTE ---
DATE: 05/20/2019 SUBJECTIVE: This morning Mr. Gonsalez refers to be doing fairly okay. Denied any new complaints. There is a plan for a possible transmetatarsal amputation of the left foot tomorrow with surgery. OBJECTIVE: Vital signs: Blood pressure is 130/71, pulse of 71, respiration is 18, temperature 98 degrees. General: Physical exam is remains unchanged. Chest: Clear to auscultation. No crepitations. Cardiovascular: Regular rate and rhythm. Abdomen: Soft, nontender. Extremities: The left lower extremity continues to be in a sterile dressing. It is not as offense, the smell that comes off of it like the days before. SENIOR PRODUCT MARKETING MANAGER: Patient is awake, alert, and oriented. LABORATORY DATA: Has been reviewed. The patient's glucose was 172 this morning. ASSESSMENT: 1. Diabetic left foot infection with culture positive for Proteus mirabilis and Klebsiella pneumoniae. 2. Acute osteomyelitis of the 2nd and the 3rd left toes. Patient is status post amputation. The recent I D seems to suggest that there are multiple metatarsal bone involvement. There is a plan for possible transmetatarsal amputation of the left foot. 3. Methicillin-sensitive Staphylococcus aureus and Sphingomonas paucimobilis bacteremia. Patient is on antibiotic. Blood cultures have been negative. 4. Diabetes mellitus with presenting A1c of 11.6. The patient is currently on insulin 70/30. 5. Hypertension is controlled. 6. Protein calorie malnutrition. The patient is on nutritional support. 7. Normocytic anemia due to chronic disease, noted. PLAN: So in general, I think Mr. Gonsalez is doing fairly okay. The glucose is a lot better on the current insulin regimen. His blood pressure is also control. We will be pending further recommendations from surgery in terms of subsequent surgeries on the foot. cc: Tru Page MD
--- NOTE | 2019-05-20 14:40 | INFECTIOUS DISEASE PROGRESS NO ---
DATE: 05/20/2019 PRESENT ILLNESS: The patient has a left foot osteomyelitis and a bacteremia. MEDICATIONS: The patient is on Rocephin. This is the 10th day of treatment with antibiotics. PHYSICAL EXAMINATION: Vital Signs: Temperature is 98 degrees, pulse 71, respirations 18, blood pressure 130/71. General: This is a chronically ill-appearing, middle-aged male. He is lethargic. HEAD EYES EARS, NOSE AND THROAT: He can hear my spoken words and see near objects. I did not notice any white coating of his tongue. Neck: No pain with movement. Lungs: Clear to auscultation. Cardiovascular: Heart rate is regular. Abdomen: Soft and nontender. Extremities: Patient has a PICC in the right arm. There is no erythema or purulence at the site. I removed the dressing from the patient's left foot. The wound is larger than it was earlier because the patient had surgery performed yesterday by Dr. Sanders. The tissue is all beefy red, but there is an odor to the foot. Neurologic: As mentioned above, the patient was lethargic. He did arouse easily, though, and he can move his extremities. There is no tremor. LABORATORY AND RADIOLOGY: There is no new radiographic study. CBC shows a white count of 6520, hemoglobin 11.7, and platelet count 292,000. Creatinine is 0.7, GFR is greater than 60. ASSESSMENT AND PLAN: The patient has left foot cellulitis and osteomyelitis as well as a bacteremia. I plan to continue with the antibiotics for a total of 6 weeks. COMORBIDITIES: The patient is a diabetic and he has been noncompliant. cc: Terrence Ordonez MD
[2019-05-21] MEDS: HUMALOG SUBQ SCH ×5 (00:44→20:53)
[2019-05-21] MEDS: HUMULIN 70/30 SUBQ SCH ×3 (00:45→20:53)
[2019-05-21] MEDS ORDERED: INSULIN PEN NEEDLES ONE (05:52)
--- NOTE | 2019-05-21 06:16 | GENERAL SURGERY PROGRESS NOTE ---
DATE: 05/21/2019 SUBJECTIVE: Patient seems to be doing okay. OBJECTIVE: Vital Signs: Patient is currently afebrile. His vital signs are stable. General: No acute distress. Cardiovascular: Regular rate and rhythm. Lungs: Grossly clear. Abdomen: Soft, nontender, nondistended. Extremities: Dressing intact to the left foot. ASSESSMENT AND PLAN: A 63-year-old male with a diabetic foot ulcer of the left foot. Diabetic foot ulcer of the left foot. At this time, we will need to take him back to the operating room and likely do completion transmetatarsal of all his toes. The wound seems to be spreading and incorporating all the toes. Discussed with him the risks, benefits and alternatives of the procedure. Risks including but not limited to bleeding, infection, risk of anesthesia, risk of damaging other tissues, deformity of the foot discussed. We will plan on doing this today. We may even place a wound VAC depending on how we can close the wound. cc: Blair Sandoval MD
[2019-05-21] MEDS: COZAAR PO SCH (08:58)
[2019-05-21] MEDS: HEPARIN SUBQ SCH ×2 (08:58→20:54)
[2019-05-21] MEDS: PERIDEX MT SCH ×2 (08:59→20:54)
[2019-05-21] MEDS: ROCEPHIN 2 GM in NS 50 ML IV SCH ×3 (12:40→22:56)
[2019-05-21] MEDS ORDERED: SODIUM CHLORIDE 0.9% 10 ML ONE (13:07)
[2019-05-21] MEDS ORDERED: DIPRIVAN 1% ONE (13:15)
[2019-05-21] MEDS ORDERED: FENTANYL ONE (13:16)
[2019-05-21] MEDS ORDERED: XYLOCAINE-MPF 2% ONE (13:18)
[2019-05-21] MEDS ORDERED: ZOFRAN ONE (13:18)
[2019-05-21] MEDS ORDERED: EPHEDRINE ONE (13:41)
[2019-05-21] MEDS ORDERED: STERILE WATER INJ. ONE ×2 (13:41→14:16)
[2019-05-21] MEDS ORDERED: NEO-SYNEPHRINE ONE (14:14)
--- NOTE | 2019-05-21 14:53 | OPERATIVE NOTE ---
PROCEDURE DATE: 05/21/2019 PREOPERATIVE DIAGNOSIS: Diabetic foot ulcer, left foot. POSTOPERATIVE DIAGNOSIS: Diabetic foot ulcer, left foot. PROCEDURES: 1. Transmetatarsal amputation, left foot. 2. Placement of wound VAC. SURGEON: Blair Sandoval MD. COLLEGE BASKETBALL COACH: None. ANESTHESIA: General tracheal. FINDINGS: Wounds seem to track and involve to the joint with the cuneiform and the metatarsal on the left foot. COMPLICATIONS: None at time of dictation. ESTIMATED BLOOD LOSS: 50 mL. SPECIMEN: Removed toes. BRIEF HISTORY: A 63-year-old gentleman who I have been treating for diabetic foot ulcer. The wound continued to progressively get worse and was tracking up to what appeared to be the metatarsal. It was felt that he would need to have a transmetatarsal amputation. We had done previous amputations and it had not improved. The risks, benefits, alternatives were discussed. All questions answered. DESCRIPTION OF PROCEDURE: After informed consent was obtained, patient was brought to the operative theatre, transferred to the operating table in supine position. General endotracheal anesthesia was then performed without complication. A formal time-out was then performed confirming patient, date, procedure. All in agreement. At that time, attention was given to the left foot, prepped and draped in sterile fashion. After the time-out, we turned our attention to the left foot. We made an incision around it and the plane where the posterior aspect of the wound on the plantar surface was carried all way down. We encountered the bone. It seemed like this was involving the cuneiform metatarsal joint on the 1st digit on the left foot. We went through this joint. We then did a transmetatarsal amputation of the remaining digits 2 through 5. Given where the wound was on the plantar surface, I could not make a posterior flap. I tried to cover the bone as best I could but was unsuccessful. We maintained hemostasis with electrocautery. We debrided back all the tissue. The wound itself was almost like a guillotine amputation. I elected to place a wound VAC on this. We connected a black sponge and gauze over connected to suction with good seal. At this point, I will get a consultation with Dr. Lopes to see if he can have some kind of Syme amputation or if he does need a [id number]. cc: MD BONG KeyD
--- NOTE | 2019-05-21 17:03 | PROGRESS NOTE ---
DATE: 05/21/2019 SUBJECTIVE: Today Mr. Gonsalez refers to be doing well. He was just awaiting surgery to be done. No new complaints. OBJECTIVE: Vital signs: Stable. Blood pressure is 134/82, pulse of 93, respirations 16, temperature 98.3 degrees. General: Mr. Gonsalez is a 63-year-old gentleman. He was in bed, no distress. HEENT: Mucosa is pink and moist. Anicteric. Acyanotic. Neck: Supple. Chest: Clear to auscultation. Cardiovascular: Regular rate and rhythm. GI: Abdomen was soft. Extremities: Left lower extremity continues to be in a sterile dressing which was minimally soiled. FACTORY FOCUS TECHNICIAN: Patient was awake, alert, and oriented. LABORATORY DATA: Glucose was 118 today. ASSESSMENT: 1. Proteus mirabilis and Klebsiella pneumoniae wound infection of a diabetic left foot. 2. Acute osteomyelitis of the 2nd and 3rd left toes. The patient is status amputation and multiple I Ds. He is now pending a transmetatarsal amputation because of multiple bone involvement. 3. Methicillin-sensitive Staphylococcus aureus and Sphingomonas paucimobilis bacteremia. Patient is on antibiotics. Subsequent blood cultures are negative. 4. Diabetes mellitus with presenting A1c of 11.6. The patient is currently stable on insulin regimen. 5. Hypertension, controlled. 6. Normocytic anemia due to chronic disease. 7. Protein calorie malnutrition. PLAN: So in general, Mr. Gonsalez is stable. Was pending the surgery early this morning. At the time of the dictation, I had gotten a call from Dr. Sandoval and it appears that even after the transmetatarsal amputation there is the concern that the patient had some more bone involvement and that he would end up needing a below-knee amputation. He, however, recommended to get Dr. Lopes to evaluate him and give also another opinion. cc: Tru Page MD
--- NOTE | 2019-05-21 17:43 | ORTHOPAEDICS CONSULTATION ---
DATE: 05/21/2019 REASON FOR CONSULT: Left foot wound. HISTORY OF PRESENT ILLNESS: Mr. Flores is a 63-year-old male who has been in the hospital for about a 2-week period now for this left lower extremity diabetic wound infection. It sounds like this has being on total for about a month now. Dr. Sandoval has taken him to the OR for toe amputations, but unfortunately it got worse after that and took him today for a transmetatarsal amputation. Orthopedics was consulted for the possibility of reconstruction with amputation further of the foot versus a recommended below-knee amputation. PAST MEDICAL HISTORY: Peripheral neuropathy. PAST SURGICAL HISTORY: Toe amputation and midfoot amputation, left side. FAMILY HISTORY: Is not obtainable. SOCIAL HISTORY: He does partake in tobacco and alcohol use. PHYSICAL EXAMINATION: General: The patient is lying in his hospital bed in the recovery room. He is a little confused from coming out of anesthesia. Head and neck: Normocephalic, atraumatic. Respirations: Nonlabored breathing. Cardiovascular: Regular rate. Abdomen: Nondistended. Extremities: Left lower extremity exam: Took the wound VAC down of his foot. I see that the midfoot has been amputated. You can see the 2nd 3rd 4th and 5th. Metatarsal bases and the 1st cuneiform cartilage. Unfortunately there is not a plantar flap secondary to being where the wound is in and purulence. You can still smell a foul smelling odor from the foot and the plantar tissue does not look great. It looks like there may be a little bit necrotic there still. ASSESSMENT: Diabetic foot ulcer status post amputation midfoot. PLAN: I discussed with patient and with Dr. Sandoval about this midfoot. I think the level of amputation does need to go higher. I do not see that all the infection has been eradicated from the plantar tissue and without that plantar tissue used as a flap, I do not think the foot will really heal and it definitely will not heal well. I think if you go any further back just to do more midfoot or hindfoot amputation you will end up losing tibialis anterior function, posterior tibial function and even peroneal function which will ultimately lead to deformity or you will end up having to transfer those tendons then, but I would not recommend that under the circumstances of infection. So, at this point, I would recommend a left tzlha-yue-sdis amputation. I think he could have lot better function after he healed and would be able to get back on this leg better. I discussed that with the patient and with Dr. Sandoval and we are available for any help if need be. cc: Steven Lopes MD
[2019-05-21] MEDS: MORPHINE IV PRN (20:54)
--- NOTE | 2019-05-22 06:07 | GENERAL SURGERY PROGRESS NOTE ---
DATE: 05/22/2019 In the operating room, the wound seemed to track more to the tarsal bones and involve the metatarsocuneiform joint. I had a consultation with Dr. Lopes who evaluated the wound. There are very limited options to salvage the midfoot at this time. Discussed with the patient and initially had him planned for a hmgrh-qeg-ebhn amputation, but he is very hesitant to do this even knowing that it is likely his best option. Given this, we will put his operation on hold but we will have Dr. Lopes come back up and talk to him about realistic expectations of salvaging his midfoot. I appreciate Dr. Lopes's input. cc: Blair Sandoval MD
[2019-05-22] MEDS: HUMALOG SUBQ SCH ×4 (06:38→23:47)
--- NOTE | 2019-05-22 07:00 | ORTHOPAEDICS PROGRESS NOTE ---
DATE: 05/22/2019 SUBJECTIVE: Mr. Flores is lying in bed this morning. Overall doing okay. OBJECTIVE: Left lower extremity exam, his dressing has a little bit of bloody drainage on it. The skin around the lower calf looks fine and I do not see any evidence of infection there. ASSESSMENT: Left diabetic foot ulcer status post midfoot guillotine amputation. PLAN: I discussed with Mr. Flores about his foot and his whole left lower extremity. Because of where his infection was, there was really not any good reconstructive procedures for the foot to try to save length because that plantar tissue really was infected and unable to be used for a flap. I went over that with him specifically. I went over with him that if we end up doing something like a Syme amputation, it really renders the foot nonfunctional and we do not have good prosthetic options there and limb is also shorter and so my recommendation would be a left below- the-knee amputation. He seemed to be very understanding of everything. I discussed with Dr. Sandoval I would talk to him a little bit more about it but that would be my orthopedic recommendation at this point, would be a left below-knee amputation so that we could get things healed up and get him in a prosthesis and back to walking. cc: Steven Lopes MD
--- NOTE | 2019-05-22 08:11 | GENERAL SURGERY PROGRESS NOTE ---
DATE: 05/22/2019 Discussed the case with Dr. Lopes. He evaluated the patient again this morning and had a lengthy discussion. At this point, Dr. Lopes agrees that a chcwy-nqy-kwop amputation is likely the best thing for him given the limited options for reconstruction given where his wound was in the plantar aspect of his foot. The patient is still somewhat hesitant and wants to at least consider waiting until Saturday before any kind of surgical intervention, so we will cancel the case today and get him back on his diabetic diet. cc: Blair Sandoval MD
[2019-05-22] MEDS: MORPHINE IV PRN ×2 (09:33→23:47)
[2019-05-22] MEDS: HUMULIN 70/30 SUBQ SCH ×2 (09:38→23:39)
[2019-05-22] MEDS: COZAAR PO SCH (10:25)
[2019-05-22] MEDS: HEPARIN SUBQ SCH ×2 (10:25→23:47)
[2019-05-22] MEDS: PERIDEX MT SCH ×2 (10:25→23:39)
[2019-05-22] MEDS: ROCEPHIN 2 GM in NS 50 ML IV SCH ×2 (10:33→23:43)
--- NOTE | 2019-05-22 12:04 | INFECTIOUS DISEASE PROGRESS NO ---
DATE: 05/22/2019 PRESENT ILLNESS: The patient has been treated for Proteus, Klebsiella and diphtheroids which have grown to his left lower extremity with osteomyelitis. He so far he has had 3 surgeries to that left lower extremity on this admission with the most recent one yesterday being a transmetatarsal amputation. There is also a Sphingomonas and Staph bacteremia. MEDICATIONS: He is receiving ceftriaxone 2 g IV every 12 hours based on his sterile blood cultures. Today is day 12 of treatment for his bacteremia. PHYSICAL EXAMINATION: Vital Signs: Temperature is 97.9 degrees, pulse rate 86, respiratory rate 16, blood pressure 111/69, O2 saturation is 98% on room air. General: This is a chronically ill- appearing, middle-aged gentleman. He is lying in bed, currently in no acute distress. HEENT: Atraumatic, normocephalic. Oral mucous membranes are pink and moist. Conjunctivae are pink. Neck: Supple. Trachea is midline. Cardiovascular: Heart rate and rhythm are regular. Normal sinus rhythm on the monitor. Respiratory: Lung sounds are bilaterally clear to auscultation, no work of breathing is noted. Abdomen: Soft, round, nontender, nondistended. Bowel sounds are active. Integumentary: Skin is warm and dry with a PICC line in place to the right upper arm. That site is without erythema, edema, or drainage. The dressing to his left foot has some weeping of bloody drainage. Neurologic: He is awake, alert, oriented, and able to move around in the bed independently. LABORATORY AND X-RAY: Today his creatinine is 0.8, estimated GFR is greater than 60. No CBC today. Also no imaging reports today. ASSESSMENT AND PLAN: Mr. Gonsalez is status post his 3rd surgery to the left foot for osteomyelitis with Proteus, Klebsiella and diphtheroids growing to that foot. He has had a transmetatarsal amputation and there is talk of a possible left biykm-cet-zdod amputation which may be done on Saturday. Will go ahead and order some blood work for Saturday morning. The patient has been on Rocephin for his bacteremia as well as the bacteria to the left lower extremity. He will have completed treatment for his bacteremia in 2 more days; however, we will continue the Rocephin for the bacteria that have grown to the left foot previously. These plans have been discussed with and recommended by Dr. Ordonez. COMORBIDITIES: For the patient include diabetes mellitus and medical noncompliance. Dictated by KIM Lo for Terrence Ordonez MD cc: Terrence Ordonez MD MTDD
--- NOTE | 2019-05-22 15:56 | PROGRESS NOTE ---
DATE: 05/22/2019 SUBJECTIVE: This morning Mr. Gonsalez refers to be doing okay, did not have any new complaints. He has been evaluated by both Surgery and Orthopedics, and they have both recommended below-knee amputation of the left lower extremity. OBJECTIVE: Vital Signs: His current vitals :blood pressure is 104/73, pulse of 83, respiration is 16, temperature is 98.5, patient is saturating 96% on room air. General exam: Mr. Gonsalez is a 63-year-old male. He was in bed in no distress. HEENT: Mucosa is pink and moist. Anicteric. Acyanotic. Neck: Supple. Chest: Clear to auscultation. No crepitations. No rhonchi. Cardiovascular: Regular rate and rhythm. No murmurs, no rubs, no gallops.. GI/Abdomen: Soft, nontender. Bowel sounds present. Extremities: No pedal edema. The left lower extremity is in sterile dressing. There is a wound VAC in place. There is obviously a transmetatarsal amputation. REMNANTS CUTTER: Patient is awake, alert and oriented. LABORATORY DATA: Glucose was 258 this morning. ASSESSMENT: 1. Proteus mirabilis and Klebsiella pneumoniae left diabetic foot infection associated with acute osteomyelitis of the bones. The patient is status post multiple incision and drainages. Yesterday he underwent transmetatarsal amputation. He has been evaluated by Surgery and Orthopedics, and there is the concern that the rest of even the foot bones are still involved, and he will need to undergo below-knee amputation. 2. Methicillin-sensitive Staphylococcus aureus and single Sphingomonas and staph bacteremia. Patient is on ceftriaxone. Subsequent blood cultures have been negative. 3. Diabetes mellitus with presenting A1c of 11.6. Patient is on insulin regimen. Glucose is controlled. 4. Hypertension, controlled. 5. Protein calorie malnutrition. Patient is on supplements. 6. Normocytic anemia of chronic disease. PLAN: So in general, I think Mr. Gonsalez is doing well. It is perceived that the rest of the bones in the left foot still has infection, and that his best therapeutic approach will be a BKA. Initially, he was quite resistant to the idea. However, this morning after I spoke to him, he seems to be in agreement. We will be waiting on Surgery to evaluate him tomorrow and then plan for the procedure on Saturday. cc: Tru Page MD
--- NOTE | 2019-05-23 06:27 | GENERAL SURGERY PROGRESS NOTE ---
DATE: 05/23/2019 The patient is more minimal to amtfj-uvf-kgbq amputation. We will plan on doing this Saturday. He had a wound VAC placed, which is given a good seal to his wound. We will plan on lmvjz-dmi-xjcn amputation Saturday. cc: MD BRYCE Key
[2019-05-23] MEDS: HUMALOG SUBQ SCH ×4 (06:55→22:50)
[2019-05-23 07:34] LABS: BASO# 0.05 X1000 (0.0-0.2); BASO% 0.7 % (0.0-0.8); EOS# 0.27 X1000 (0.0-0.7); EOS% 3.5 % (0.0-10.0); HEMATOCRIT 29.4 % (42.0-52.0); HEMOGLOBIN 9.5 g/dL (14.0-18.0); LYMPH# 1.63 X1000 (1.2-3.4); LYMPH% 21.3 % (20.5-51.1); MCH 28.4 PG (27-31); MCHC 32.3 g/dL (33-37); MONO# 0.83 X1000 (0.11-0.59); MONO% 10.9 % (1.7-9.3); MPV 8.9 FL (7.4-10.4); NEUT# 4.86 X1000 (1.4-6.5); NEUT% 63.6 % (42.2-75.2); PLT 287 X1000 (130-400); RBC 3.34 XMIL (4.7-6.1); RDW 12.2 % (11.5-14.5); WBC 7.64 X1000 (4.8-10.8)
--- NOTE | 2019-05-23 07:50 | PROGRESS NOTE ---
DATE: 05/23/2019 SUBJECTIVE: This morning Mr. Gonsalez refers to be doing well. No new complaints. He has been evaluated by Surgery. OBJECTIVE: Vital signs: Blood pressure 119/87, pulse of 75, respirations 16, temperature is 98.9 degrees. General: Mr. Gonsalez is a 63-year-old gentleman. He is in bed, no distress. HEENT: Mucosa is pink and moist. Anicteric. Acyanotic. Neck: Supple. Chest: Clear to auscultation. No crepitations. No rhonchi. Cardiovascular: Regular rate and rhythm. GI: Abdomen was soft, nontender. Bowel sounds present. Extremities: No pedal edema. The left lower extremity is in sterile dressing. Wound VAC is in place. WEIGHT LOSS CONSULTANT: Patient is awake, alert, and oriented. LABORATORY DATA: The patient's glucose was 236. Not any other lab work at the time of dictation. CURRENT MEDICATIONS: Have all been reviewed. He is still on ceftriaxone 2 g every 12 hours, today is 12 days on that. ASSESSMENT: 1. Proteus mirabilis and Klebsiella pneumonia, left diabetic foot infection associated with osteomyelitis. Patient is status post multiple I and D's and eventually underwent transmetatarsal amputation. There are still the concern that some left bones could still be infected, so there is a plan for a BKA on Saturday. 2. MSSA and Sphingomonas paucimobilis bacteremia. Subsequent blood cultures have been negative. Patient is still on ceftriaxone. 3. Diabetes mellitus with presenting A1c of 11.6. We will continue with insulin regimen. Patient's glucose slightly more elevated yesterday than they have been previously. It appears he did not get the leaf coverer 70/30. 4. Hypertension controlled. 5. Protein calorie malnutrition. Patient is on supplementation. 6. Normocytic anemia of chronic disease. So Mr. Gonsalez is clinically stable. He is tolerating his is tolerating his diabetic diet. He is also on LiquaCel protein modular. He is on antibiotics and insulin therapy. He is clinically stable. Today is day 2 of transmetatarsal amputation. Surgery is on board. There is a plan for a below-knee amputation on Saturday. cc: Tru Page MD
[2019-05-23 08:20] LABS: AGAP 10; ALBUMIN 2.5 g/dL (3.5-5.0); BUN 12 mg/dL (8-22); CALCIUM 7.8 mg/dL (8.8-10.2); CHLORIDE 96 mmol/L (98-107); COSMO 264; CREATININE 0.7 mg/dL (0.7-1.2); ESTIMATED GFR > 60; GLUCOSE 165 mg/dL (70-104); PHOSPHORUS 3.1 mg/dL (2.7-4.5); POTASSIUM 4.1 mmol/L (3.5-5.1); SODIUM 130 mmol/L (136-145); TCO2 24 mmol/L (25-35)
[2019-05-23] MEDS: HUMULIN 70/30 SUBQ SCH ×2 (09:51→22:32)
[2019-05-23] MEDS: HEPARIN SUBQ SCH ×2 (09:51→22:31)
[2019-05-23] MEDS: COZAAR PO SCH (09:51)
[2019-05-23] MEDS: PERIDEX MT SCH ×2 (09:51→22:32)
[2019-05-23] MEDS: ROCEPHIN 2 GM in NS 50 ML IV SCH (10:06)
[2019-05-23] MEDS: MORPHINE IV PRN ×2 (10:06→22:22)
--- NOTE | 2019-05-23 18:18 | EKG Report ---
Test Performed on : 05/23/2019 5:51:32 PM Test Reason : chest pain Blood Pressure : / mmHG Vent. Rate : 077 BPM Atrial Rate : 077 BPM P-R Int : 124 ms QRS Dur : 074 ms QT Int : 370 ms P-R-T Axes : 051 035 022 degrees QTc Int : 418 ms Normal sinus rhythm. Normal ECG When compared with ECG of 07-MAY-2019 18:31, (Unconfirmed) No significant change was found Unconfirmed Result
[2019-05-23] MEDS: ZOFRAN IV PRN (22:23)
[2019-05-24] MEDS: ROCEPHIN 2 GM in NS 50 ML IV SCH ×3 (01:19→22:22)
[2019-05-24] MEDS: OXY IR PO PRN ×2 (01:19→22:21)
[2019-05-24 06:57] LABS: HEMOGLOBIN 10.5 g/dL (14.0-18.0); MCH 29.1 PG (27-31); MCHC 33.9 g/dL (33-37); MCV 85.9 FL (81-99); MPV 9.1 FL (7.4-10.4); RBC 3.61 XMIL (4.7-6.1); RDW 12.6 % (11.5-14.5); WBC 5.95 X1000 (4.8-10.8)
[2019-05-24] MEDS: HUMALOG SUBQ SCH ×4 (07:07→22:23)
--- NOTE | 2019-05-24 07:11 | GENERAL SURGERY PROGRESS NOTE ---
DATE: 05/24/2019 The patient is amenable to a mwqes-jsm-wsed amputation. We have him tentatively scheduled for tomorrow. Will make him n.p.o. after midnight. A previous consent order has been given. Will get consent and plan on surgery in the morning. cc: Blair Sandoval MD
[2019-05-24 07:22] LABS: AGAP 12; ALBUMIN 2.5 g/dL (3.5-5.0); BUN 10 mg/dL (8-22); CALCIUM 8.3 mg/dL (8.8-10.2); CHLORIDE 98 mmol/L (98-107); COSMO 273; CREATININE 0.8 mg/dL (0.7-1.2); ESTIMATED GFR > 60; GLUCOSE 203 mg/dL (70-104); PHOSPHORUS 3.3 mg/dL (2.7-4.5); POTASSIUM 4.5 mmol/L (3.5-5.1); SODIUM 134 mmol/L (136-145); TCO2 24 mmol/L (25-35)
--- NOTE | 2019-05-24 09:31 | EKG Report ---
Test Performed on : 05/24/2019 07:53:08 AM Test Reason : chest pain Blood Pressure : / mmHG Vent. Rate : 069 BPM Atrial Rate : 069 BPM P-R Int : 136 ms QRS Dur : 074 ms QT Int : 386 ms P-R-T Axes : 064 044 054 degrees QTc Int : 413 ms Normal sinus rhythm. Normal ECG When compared with ECG of 23-MAY-2019 17:51, (Unconfirmed) No significant change was found Unconfirmed Result
[2019-05-24] MEDS: HUMULIN 70/30 SUBQ SCH ×2 (09:47→22:22)
[2019-05-24] MEDS: HEPARIN SUBQ SCH ×2 (09:48→22:23)
[2019-05-24] MEDS: PERIDEX MT SCH ×2 (09:48→22:23)
[2019-05-24] MEDS: COZAAR PO SCH (09:48)
--- NOTE | 2019-05-24 14:24 | PROGRESS NOTE ---
DATE: 05/24/2019 SUBJECTIVE: This morning Mr. Gonsalez refers to be doing well. No new complaints. OBJECTIVE: Vital signs: Blood pressure is 130/78, pulse of 69, respirations 18, temperature 97.5 degrees. General: Patient's physical exam is unremarkable. Extremities: He still has a dressing over the left lower extremity, and the wound VAC is still in place. CURRENT LABORATORY DATA: There is a mild normocytic anemia. Sodium is 134. Glucose is 203. ASSESSMENT: 1. Proteus mirabilis and Klebsiella pneumoniae left diabetic foot infection associated with osteomyelitis. The patient is status post transmetatarsal amputation. There is a plan for a left below-knee amputation tomorrow. 2. Methicillin-susceptible Staphylococcus aureus and Sphingomonas paucimobilis bacteremia. Subsequent blood cultures have been negative. Patient is on ceftriaxone. 3. Diabetes mellitus with presenting A1c of 11.6. Patient is on insulin regimen. 4. Hypertension. Controlled. 5. Normocytic anemia of chronic disease. 6. Protein calorie malnutrition. Patient is on supplements. cc: Tru Page MD
[2019-05-25] MEDS: MORPHINE IV PRN ×4 (06:01→23:59)
--- NOTE | 2019-05-25 07:07 | GENERAL SURGERY PROGRESS NOTE ---
DATE: 05/25/2019 SUBJECTIVE: Patient seems to be doing okay. OBJECTIVE: Vital Signs: The patient is currently afebrile. His vital signs are stable. General Examination: No acute distress. Cardiovascular: Regular rate and rhythm. Lungs: Grossly clear. Abdomen: Soft, nontender, nondistended. Extremities: Wound VAC in place. ASSESSMENT AND PLAN: A 63-year-old gentleman with a diabetic foot ulcer to the left foot. Diabetic foot ulcer. At this time, we will plan on zlohb-zhu-okyq amputation. Discussed with him the risks, benefits, and alternatives. All questions were answered. We will do this today. He is nothing per oral. cc: Blair Sandoval MD
[2019-05-25 07:31] LABS: BASO# 0.04 X1000 (0.0-0.2); BASO% 0.5 % (0.0-0.8); EOS# 0.21 X1000 (0.0-0.7); EOS% 2.7 % (0.0-10.0); HEMATOCRIT 30.4 % (42.0-52.0); HEMOGLOBIN 9.8 g/dL (14.0-18.0); LYMPH# 1.36 X1000 (1.2-3.4); LYMPH% 17.4 % (20.5-51.1); MCH 27.8 PG (27-31); MCHC 32.2 g/dL (33-37); MCV 86.4 FL (81-99); MONO# 0.76 X1000 (0.11-0.59); MONO% 9.7 % (1.7-9.3); MPV 9.6 FL (7.4-10.4); NEUT# 5.45 X1000 (1.4-6.5); NEUT% 69.7 % (42.2-75.2); PLT 348 X1000 (130-400); RBC 3.52 XMIL (4.7-6.1); RDW 12.6 % (11.5-14.5); WBC 7.82 X1000 (4.8-10.8)
[2019-05-25] MEDS: HUMALOG SUBQ SCH ×4 (07:39→21:14)
[2019-05-25 07:52] LABS: AGAP 14; BUN 8 mg/dL (8-22); CHLORIDE 96 mmol/L (98-107); COSMO 263; CREATININE 0.7 mg/dL (0.7-1.2); ESTIMATED GFR > 60; GLUCOSE 93 mg/dL (70-104); POTASSIUM 3.8 mmol/L (3.5-5.1); SODIUM 132 mmol/L (136-145); TCO2 22 mmol/L (25-35)
[2019-05-25] MEDS: HUMULIN 70/30 SUBQ SCH ×2 (08:43→21:13)
[2019-05-25] MEDS ORDERED: DIPRIVAN 1% ONE (10:51)
[2019-05-25] MEDS ORDERED: XYLOCAINE-MPF 2% ONE (10:52)
[2019-05-25] MEDS: ROCEPHIN 2 GM in NS 50 ML IV SCH ×3 (10:52)
[2019-05-25] MEDS ORDERED: FENTANYL ONE (11:17)
[2019-05-25] MEDS ORDERED: ZOFRAN ONE (11:33)
[2019-05-25] MEDS ORDERED: DECADRON ONE (11:33)
[2019-05-25] MEDS: DILAUDID ONE ×4 (12:22→12:40)
[2019-05-25] MEDS ORDERED: OXY IR ONE (13:07)
--- NOTE | 2019-05-25 14:07 | OPERATIVE NOTE ---
PROCEDURE DATE: PREOPERATIVE DIAGNOSIS: Diabetic foot wound of the left leg. POSTOPERATIVE DIAGNOSIS: Diabetic foot wound of the left leg. PROCEDURE: Left dtubk-gqv-bkca amputation. SURGEON: Blair Sandoval MD ECONOMICS TEACHER: Dr. Bettencourt. Dr. Bettencourt assisted in the entirety of the case. His presence was crucial in completion of the case. ANESTHESIA: General endotracheal. FINDINGS: Good blood supply noted. COMPLICATIONS: None at time of this dictation. ESTIMATED BLOOD LOSS: 300 mL. SPECIMEN REMOVED: Leg. BRIEF HISTORY: A 63-year-old gentleman with a diabetic foot ulcer. We tried multiple debridements and could not get it to heal. I even had an intraoperative consult with Dr. Lopes to see if there are any other options, but he believes that the best thing would be a left below- the-knee amputation. The risks, benefits, and alternatives of the procedure were discussed. All questions answered. DESCRIPTION OF PROCEDURE: After informed consent was obtained, the patient was brought to the operative theatre, transferred to the operating room table in the supine position. General endotracheal anesthesia was then performed without complication. A formal time-out was then performed confirming the patient, date, and procedure. All were in agreement. At that time, attention was given to the left leg. It was prepped and draped in a sterile fashion. After the time out, we marked the landmarks for tibial tuberosity. We did at least 2 fingers distal this. We made our incision on the anterior surface, carried all the way down to the tibia. We used a saw to get through the tibia and bevel the edge. We then encountered the vessels and suture ligated all the major vessels in the area. We then made a posterior flap after transecting through the fibula also with the saw. Once we had done this, we debrided back some muscle to make the flap possible. Again we maintained hemostasis with electrocautery and suture ligation. We closed the stump in layers using 0 Vicryl and briseyda for the skin. There was good skin approximation, good coverage. The patient tolerated the procedure well, had a sterile dressing applied. cc: Blair Sandoval MD
[2019-05-25] MEDS: PERIDEX MT SCH ×3 (14:40→23:09)
[2019-05-25] MEDS: COZAAR PO SCH (14:40)
[2019-05-25] MEDS: HEPARIN SUBQ SCH ×3 (14:41→23:09)
--- NOTE | 2019-05-25 15:17 | INFECTIOUS DISEASE PROGRESS NO ---
DATE: 05/25/2019 PRESENT ILLNESS: Mr. Flores is status post left vjutu-pee-zmsa amputation for Proteus, Klebsiella and diphtheroids that have grown to an osteomyelitis of the left foot. He has completed treatment for Sphingomonas and Staphylococcus bacteremia. MEDICATIONS: Today is day #15 of treatment with ceftriaxone 2 g IV every 12 hours. PHYSICAL EXAMINATION: Vital Signs: Temperature is 97.5 degrees, pulse rate 109, respiratory rate 22, blood pressure 137/85, O2 saturation 99% on room air. General: This is a chronically ill- appearing, middle-aged gentleman. He is lying in the bed fresh postop from a left cehjq-xoz-xsaj amputation still groggy from sedation but arousable. HEENT: Atraumatic, normocephalic. Oral mucous membranes are pink and moist. Conjunctivae are pale. Neck: Supple. Trachea is midline. Respiratory: Lung sounds are bilaterally clear to auscultation. No work of breathing is noted. Cardiovascular: Heart rate is regular. He is not hooked up to the monitor at this point. Abdomen: Soft, flat, nontender. Bowel sounds are active. Integumentary: Skin is warm, dry, and intact. There is a PICC line in place to the right upper arm. That site is without edema, erythema, or drainage. The left dhesv-dgr-rkrj amputation dressing has an George wrap in place that is dry and intact without any drainage noted on the dressing. Neurologic: He is drowsy and lethargic but arousable and appropriate and able to move around in the bed independently. LABORATORY AND X-RAY: Today his white count is 7.82, hemoglobin 9.8, platelet count 348,000. Creatinine is 0.7, estimated GFR is greater than 60. His left foot had previously grown Proteus Klebsiella and diphtheroids. He also had a Sphingomonas and staphylococcal bacteremia which was appropriately treated and that treatment is complete. Electrocardiogram done yesterday shows normal sinus rhythm on the unconfirmed report. ASSESSMENT AND PLAN: The patient has been treated for osteomyelitis and is status post left below- the-knee amputation, just arriving back to the room moments ago. He seems to have done well and has completed his treatment for the bacteremia. At this point, we will continue the Rocephin to make sure that the healing process is not hindered. These plans have been discussed with and recommended by Dr. Ordonez. COMORBIDITIES: For the patient include diabetes mellitus and medical noncompliance. Dictated by KIM Lo for Terrence Ordonez MD cc: Terrence Ordonez MD MTDD
--- NOTE | 2019-05-25 16:13 | PROGRESS NOTE ---
DATE: 05/25/2019 SUBJECTIVE: This morning, Mr. Gonsalez referred to be doing well. He was just waiting to go for his surgery. He denies any new complaints. OBJECTIVE: Vital signs: Blood pressure was 133/82, pulse of 72, respiration was 20, temperature 98.5 degrees. The patient was saturating 98% on room air. General: Mr. Gonsalez is a 63-year-old male. He was in bed. No distress. Mucosa is pink and moist. Anicteric. Acyanotic. Neck: Supple. Chest: Clear to auscultation. No crepitations. No rhonchi. Cardiovascular: Regular rate and rhythm. Abdomen: Soft, nontender. Bowel sounds present. Extremities: There is a dressing over the left transmetatarsal amputation. Wound VAC was in place. The right lower extremity also has some old amputation on the 4th and the 5th digit on the right. Central Nervous System: Patient is awake, alert, and oriented. LABORATORY DATA: Has been reviewed. There is mild normocytic anemia. Chemistry is within normal range except for sodium of 132. ASSESSMENT: 1. Left diabetic foot infection associated with osteomyelitis. Patient has had transmetatarsal amputation. However both surgery and orthopedics have evaluated the patient and they think that bqeql-lla-iyvl amputation will be his best option. He is pending that today. 2. Methicillin-sensitive Staphylococcus aureus and Sphingomonas paucimobilis bacteremia. Subsequent blood cultures are negative. Patient is on ceftriaxone. ID is on board. 3. Diabetes mellitus with presenting A1c of 11.6. The patient is on insulin regimen. 4. Hypertension controlled. 5. Normocytic anemia of chronic disease. 6. Protein calorie malnutrition. Patient is on supplement and dietitian is on board. cc: Tru Page MD [facility]
[2019-05-25] MEDS: ZOFRAN IV PRN (19:23)
[2019-05-25] MEDS: OXY IR PO PRN ×2 (19:26→23:59)
[2019-05-26] MEDS: ROCEPHIN 2 GM in NS 50 ML IV SCH ×3 (00:01→23:34)
[2019-05-26] MEDS ORDERED: DILAUDID IV ONE (01:01)
[2019-05-26] MEDS: OXY IR PO PRN (05:10)
[2019-05-26] MEDS: MORPHINE IV PRN ×4 (05:11→20:19)
[2019-05-26 06:44] LABS: HEMATOCRIT 25.2 % (42.0-52.0); HEMOGLOBIN 8.4 g/dL (14.0-18.0); MCH 29.1 PG (27-31); MCHC 33.3 g/dL (33-37); MCV 87.2 FL (81-99); MPV 9.1 FL (7.4-10.4); RBC 2.89 XMIL (4.7-6.1); RDW 12.7 % (11.5-14.5); WBC 10.22 X1000 (4.8-10.8)
[2019-05-26] MEDS: HUMALOG SUBQ SCH ×3 (06:49→23:33)
[2019-05-26] MEDS: NORCO-10 PO PRN ×3 (06:53→23:34)
[2019-05-26] MEDS: COZAAR PO SCH (08:10)
[2019-05-26] MEDS: PERIDEX MT SCH ×2 (08:10→20:18)
[2019-05-26] MEDS: HEPARIN SUBQ SCH ×2 (08:10→20:18)
--- NOTE | 2019-05-26 08:17 | GENERAL SURGERY PROGRESS NOTE ---
DATE: 05/26/2019 SUBJECTIVE: Patient seems to be doing okay. He tolerated his dvsho-nly-four amputation. Pain control has been a little bit of an issue, so I increased his pain medicine this morning. Otherwise, he has a stump protector on and we will monitor and check his wound on postop day #3; it is currently postoperative day #1. cc: Blair Sandoval MD
[2019-05-26] MEDS: HUMULIN 70/30 SUBQ SCH ×2 (10:39→23:34)
[2019-05-26] MEDS ORDERED: INSULIN PEN NEEDLES ONE (10:41)
--- NOTE | 2019-05-26 16:09 | PROGRESS NOTE ---
DATE: 05/26/2019 SUBJECTIVE: This morning Mr. Gonsalez refers to be doing a lot better. Mild pain in the left leg. He underwent a below-knee amputation of the left lower extremity yesterday. Today is day 1 postop. OBJECTIVE: Vital Signs: Blood pressure 125/74, pulse 80, respirations 16, and temperature is 97.6 degrees. General: On general exam, Mr. Gonsalez is a 63-year-old gentleman. He is in bed in no distress. HEENT: Mucosa is pink and moist. Anicteric. Acyanotic. Neck: Supple. Chest: Clear to auscultation. No crepitations. No rhonchi. Cardiovascular: Regular rate and rhythm. GI: Abdomen is soft and nontender. Bowel sounds present. Extremities: The left lower extremity has new BKA which the stump is dropped, and there is a BKA protector on the limb. The right has the 4th and the 5th digits, and amputated a long time ago. Neurologic: Patient is awake, alert, and oriented. LABORATORY DATA: Glucose was 251. CURRENT MEDICATIONS: All have been reviewed. He is still on ceftriaxone as antimicrobial. ASSESSMENT: 1. Left diabetic foot infection associated with osteomyelitis. Patient is status post BKA. Today, is day 1 Postop. Surgery is on board. 2. MSSA and Sphingomonas paucimobilis bacteremia. The patient is on ceftriaxone. Subsequent blood cultures have been negative. Infectious Disease is on board. 3. Diabetes mellitus with presenting A1c of 11.6. The patient is on insulin regimen. 4. Hypertension. Controlled on medications. 5. Normocytic anemia of chronic disease. 6. Protein calorie malnutrition, improving. In general, Mr. Gonsalez is doing well. He is day 1 post BKA. Per the surgery note, they plan to look at the wound on day 3 postop. We are going to continue managing his other comorbidities, and follow up with further recommendations from Surgery and ID. cc: MD BRYCE Breen
[2019-05-27] MEDS: MORPHINE IV PRN ×2 (03:59→08:15)
--- NOTE | 2019-05-27 06:15 | GENERAL SURGERY PROGRESS NOTE ---
DATE: 05/27/2019 The patient seems to be doing well. He has been hemodynamically stable. We will plan on removing the dressing tomorrow, which will be postop day #3. Otherwise, continue protecting the amputation site. cc: Blair Sandoval MD
[2019-05-27] MEDS: NORCO-10 PO PRN ×2 (06:29→15:12)
[2019-05-27] MEDS: HUMALOG SUBQ SCH ×4 (06:30→20:34)
[2019-05-27] MEDS: PERIDEX MT SCH ×2 (08:15→20:54)
[2019-05-27] MEDS: HEPARIN SUBQ SCH ×2 (08:15→20:54)
[2019-05-27] MEDS: COZAAR PO SCH (08:15)
[2019-05-27] MEDS: HUMULIN 70/30 SUBQ SCH ×3 (08:16→20:54)
[2019-05-27] MEDS ORDERED: NORCO-7.5 PO PRN (14:52)
--- NOTE | 2019-05-27 19:13 | PROGRESS NOTE ---
DATE: 05/27/2019 SUBJECTIVE: This morning Mr. Gonsalez referred to be doing well. Still has some mild pain in the amputated limb. The protector is still on it. OBJECTIVE: Vitals: Blood pressure is 128/76, pulse of 82, respirations 22, temperature is 98.2. General: Mr. Gonsalez is a 63-year-old male. He is in bed. No distress. HEENT: Mucosa is pink and moist. Anicteric. Acyanotic. Neck: Supple. Chest: Clear to auscultation. No crepitations. No rhonchi. Cardiovascular: Regular rate and rhythm. There were no murmurs no rubs no gallops. GI: Abdomen was soft, nontender. Bowel sounds present. Extremities: There is a left lower extremity new BKA. The stump is wrapped in a sterile dressing, and the BKA protector is still on the limb. The right lower extremity has the 4th and the 5th digits previously amputated. CAPACITY PLANNER: Patient is awake, alert, and oriented. LABORATORY DATA: Glucose was about 183. It has come down to 79 this morning. ASSESSMENT: 1. Left diabetic foot infection associated with Proteus mirabilis and Klebsiella pneumoniae osteomyelitis. The patient is status post left below-knee amputation. Today is day 2 postop. Surgery is on board. 2. Methicillin-sensitive Staphylococcus aureus and Sphingomonas paucimobilis bacteremia. Subsequent blood cultures are negative. The patient is on ceftriaxone. Infectious Disease is on board. 3. Diabetes mellitus with presenting A1c of 11.6. The patient is on an insulin regimen. He seems to remain euglycemic now. 4. Hypertension, controlled. 5. Normocytic anemia of chronic disease. Hemoglobin and hematocrit are stable. 6. Protein calorie malnutrition. The dietitian is on board. The patient is on diet supplements. cc: Tru Page MD
[2019-05-27] MEDS ORDERED: COZAAR PO SCH (21:00)
[2019-05-28] MEDS: NORCO-10 PO PRN (05:41)
[2019-05-28] MEDS: HUMALOG SUBQ SCH ×4 (06:11→23:42)
[2019-05-28] MEDS: HUMULIN 70/30 SUBQ SCH (09:26)
[2019-05-28] MEDS: HEPARIN SUBQ SCH ×2 (09:27→23:36)
[2019-05-28] MEDS: COZAAR PO SCH (09:27)
[2019-05-28] MEDS: PERIDEX MT SCH ×2 (09:27→23:37)
--- NOTE | 2019-05-28 10:04 | GENERAL SURGERY PROGRESS NOTE ---
DATE: 05/28/2019 SUBJECTIVE: Removed patient's dressing. Below the knee amputation site looks good. We will have the nursing staff place another dressing on. From a surgical point of view, he is likely close to being able to be discharged home if not today. We will need to make sure he has arrangement with a prosthesis company. cc: Blair Sandoval MD
--- NOTE | 2019-05-28 14:05 | PROGRESS NOTE ---
DATE: 05/28/2019 SUBJECTIVE: This morning, Mr. Gonsalez refers to be doing well. Has not had any new complaints. He said that surgeons came to review the stump. As per the documentation, early this morning, Dr. Sandoval saw him and his notes seems to suggest that the stump looks good and from Surgery standpoint, the patient can be discharged. OBJECTIVELY: Current vital signs: Blood pressure is 109/66, pulse of 79, respirations is 24, temperature 98.4 degrees. General: Mr. Gonsalez is a 63-year-old gentleman. He is in bed, no distress. HEENT: Mucosa is pink and moist. Anicteric. Acyanotic. Neck: Supple. Chest: Clear to auscultation. No crepitations. No rhonchi. Cardiovascular: Regular rate and rhythm. Abdomen: Soft, nontender. Bowel sounds present. Extremities: There is a left BKA with the stump wrapped up in sterile dressing. The BKA protector was still on the limb. The right lower extremity has the 4th and the 5th digit previously amputated. Central nervous system: Patient is awake, alert, and oriented. LABORATORY DATA: None for today. Patient's glucose was 250. ASSESSMENT: 1. Left diabetic foot infection with Proteus mirabilis and Klebsiella pneumoniae osteomyelitis. Patient is status post left vxhtj-lck-zihe amputation, today is day 3. The stump has been reviewed. As per Surgery documentation, it looks okay. 2. Methicillin-susceptible Staphylococcus aureus and Sphingomonas paucimobilis bacteremia. Subsequent blood cultures have been negative. Patient has been treated completely for the 14 days with antimicrobials. Ceftriaxone has been discontinued. 3. Diabetes mellitus with presenting A1c of 11.6. Patient is currently on insulin regimen. He has a couple episodes off low readings, so we will readjust his insulin dose. 4. Hypertension, controlled on losartan. 5. Normocytic anemia of chronic disease. Hemoglobin and hematocrit is stable. 6. Protein calorie malnutrition. Patient has been seen by dietitian and he is on nutritional supplement. DISPOSITION: In general, I think Mr. Gonsalez is doing a lot better. The stump has been reviewed by Surgery and looks like it is doing well. He is no more on any antibiotics. We are going to get Case Management notified so we can arrange for his home insulin and get him discharged first thing tomorrow morning. cc: Tru Page MD
[2019-05-28] MEDS ORDERED: HUMULIN 70/30 SUBQ SCH (21:00)
[2019-05-29] MEDS ORDERED: INSULIN PEN NEEDLES ONE (06:11)
[2019-05-29] MEDS: NORCO-10 PO PRN ×2 (06:28→13:35)
--- NOTE | 2019-05-29 06:39 | GENERAL SURGERY PROGRESS NOTE ---
DATE: 05/29/2019 SUBJECTIVE: Patient seems to be doing okay. OBJECTIVE: Vital Signs: Patient is currently afebrile. His vital signs are stable. General: No acute distress. Cardiovascular: Regular rate and rhythm. Lungs: Grossly clear. Abdomen: Soft, nontender, nondistended. Extremities: Amputation site healing well and protected in the wound protector. ASSESSMENT AND PLAN: A 63-year-old gentleman currently postoperative day #4 from left below-the- knee amputation. Postoperative state at this time, patient is doing well from a surgical point of view. He can probably be discharged as long as he has arrangements and accommodations at home. cc: Blair Sandoval MD
[2019-05-29 06:43] LABS: CHOLESTEROL 108 mg/dL (0-200); HDL 32 mg/dL (35-55); LDL 54 mg/dL; TRIGLYCERIDES 109 mg/dL (39-160); VLDL 22 mg/dL
[2019-05-29] MEDS: HUMULIN 70/30 SUBQ SCH (08:42)
[2019-05-29] MEDS: HEPARIN SUBQ SCH (08:44)
[2019-05-29] MEDS: COZAAR PO SCH (08:45)
[2019-05-29] MEDS: PERIDEX MT SCH (08:48)
[2019-05-29] MEDS ORDERED: FLU VACCINE IM ONE (10:53)
[2019-05-29] MEDS: HUMALOG SUBQ SCH ×4 (11:57→17:04)
[2019-05-29 15:58] VITALS: BP 124/68
--- NOTE | 2019-05-30 17:06 | DISCHARGE SUMMARY ---
ADMISSION DATE: 05/07/2019 DISCHARGE DATE: 05/29/2019 LENGTH OF STAY: The patient's length of stay was 22 days in the hospital. DISPOSITION: Is home. FOLLOW-UP: 1. Dr. Ordonez. 2. Dr. Sandoval. 3. [facility]. INVASIVE PROCEDURES DONE DURING THIS ADMISSION: 1. An initial transmetatarsal amputation of the 2nd and 3rd left lower extremity digits and placement of a wound VAC was done by Dr. Sandoval on 05/08/2019 due to osteomyelitis of the left foot. 2. Debridement of skin, subcutaneous tissue, muscle and tendon was done by Dr. Sandoval on 05/15/2019. 3. Another debridement of skin, tendon, muscle, and subcutaneous fascia was done again by Dr. Sandoval on 05/19/2019 and then a left BKA was also done on 05/25/[address] Sandoval. ADMISSION DIAGNOSES: 1. Severe diabetic foot infection. 2. Type 2 diabetes mellitus. DIAGNOSES AT THE TIME OF DISCHARGE: 1. Left diabetic foot infection with Proteus mirabilis and Klebsiella pneumoniae, and osteomyelitis. Patient is status post multiple interventions. 2. Finally, a below-knee amputation done by Dr. Sandoval. 3. Methicillin-sensitive Staphylococcus aureus and Sphingomonas paucimobilis bacteremia. Subsequent blood cultures have been completely negative and patient has completed 14 days of IV antibiotic therapy. 4. Diabetes mellitus type 2 with a presenting A1c of 11.6. The patient is currently on insulin regimen and metformin. 5. Hypertension controlled on losartan. 6. Normocytic anemia of chronic disease. 7. Protein-calorie malnutrition. Patient was on supplements. 8. Dyslipidemia. DISCHARGE MEDICATIONS: 1. Metformin 500 b.i.d. 2. Aspirin 81 mg p.o. daily. 3. Losartan mg p.o. daily. 4. Insulin 70/30, 35 in the morning and 20 in the evening. 5. Pravastatin 40 mg p.o. at bedtime. 6. [place] 7 p.o. q.6h p.r.n. PRESENTING COMPLAINT: Left foot swelling and purulent discharge. HISTORY OF PRESENT COMPLAINT: Mr. Gonsalez is a 63-year-old gentleman who presented to the emergency department because of left foot swelling with purulence and extremely foul smell. Upon presenting, he was evaluated and was found to have diabetic foot. He was admitted to the surgical floor for further care. HOSPITAL COURSE: Mr. Gonsalez was initially started on broad-spectrum IV antibiotics. Cultures were done and surgery was consulted as well as Infectious Disease. Initially, he was sent to the OR and the last 2 digits on the left leg was amputated transmetatarsally. However, the wound did not really heal well throughout the hospital course, so multiple interventions were done where incision and drainage and debridement of necrotic tissues were done on 2 occasions separately. However, on the last attempt, it was found out that some of the bones of the foot were also involved and that the best option would have been to do a below-knee amputation. Dr. Sandoval consulted Orthopedics Dr. Lopes for a 2nd opinion and his professional opinion also recommended a below-knee amputation to preserve his life. Mr. Gonsalez subsequently underwent below-knee amputation yesterday. The stump was reviewed and it look remarkably clean. From surgery standpoint the patient could be discharged. Mr. Gonsalez is also diabetic who was only on metformin. Does not really have any primary care doctor. His A1c was above 11 and he was started on 70/30. His glucose had been fairly well controlled during the hospital course on the insulin regimen. He has been advised to continue the current insulin regimen. His metformin has been started back and he will need to follow up with a primary care doctor. Mr. Gonsalez is also hypertensive and dyslipidemic and he was started on medication to control all those comorbidities. During the hospital course, Mr. Gonsalez was also evaluated by Infectious Disease. He did develop Sphingomonas paucimobilis and Staphylococcus sciuri which is oxacillin sensitive in his blood. ID evaluated him as well. They helped with antimicrobial management. His blood culture came back negative. A PICC line was put in his arm and he completed a total of 14 days of IV antibiotics. This has been discontinued. This morning he refers to be doing a lot better. He has been evaluated by Physical therapy on 2 occasions after the surgery. We think he is in stable condition for discharge today. His current vitals blood pressure is 117/72, pulse of 76, respirations 17, temperature is 97.2 degrees. The patient is saturating 100%. His physical exam is unremarkable except for a recent left BKA which has a sterile wrap on the stump. He also has a remote 4th and 5th digit amputation on the right lower extremity. We think he is in stable condition for discharge. All the discharge instructions including medication compliance and follow-up appointments have been discussed with him and he voiced understanding. TIME SPENT FOR DISCHARGE: Is 40 minutes. cc: MD Dr. José Luis Breen MD MTDD
== END 2019-05-29 19:27 | disposition home or self-care (01) | DRG 240 ==
LOC: SUPCPDRO → ED 16:19 → SUATTDRO 19:50 → 4N 19:50
PROVIDERS: ATTEND Internal Medicine

== ENCOUNTER 2019-06-08 09:49 | Inpatient (IN) ==
[2019-06-08 10:51] LABS: BASO# 0.03 X1000 (0.0-0.2); BASO% 0.4 % (0.0-0.8); EOS# 0.09 X1000 (0.0-0.7); EOS% 1.1 % (0.0-10.0); HEMATOCRIT 29.4 % (42.0-52.0); HEMOGLOBIN 9.5 g/dL (14.0-18.0); IMM GRAN# 0.02 X1000 (0.0-0.04); IMM GRAN% 0.2 % (0.0-0.5); LYMPH# 2.08 X1000 (1.2-3.4); MCH 27.4 PG (27-31); MCHC 32.3 g/dL (33-37); MCV 84.7 FL (81-99); MONO# 0.51 X1000 (0.11-0.59); MONO% 6.1 % (1.7-9.3); MPV 9.2 FL (7.4-10.4); NEUT% 67.2 % (42.2-75.2); PLT 295 X1000 (130-400); RBC 3.47 XMIL (4.7-6.1); RDW 13.3 % (11.5-14.5); WBC 8.33 X1000 (4.8-10.8)
[2019-06-08 10:57] LABS: INR 1.2; PROTIME 15.4 Seconds (11.0-16.0)
[2019-06-08 10:58] LABS: PTT 28.7 Seconds (22.3-41.8)
--- NOTE | 2019-06-08 11:00 | Diag Imaging Result Doc PS360 ---
EXAM: CHEST-1 VIEW 06/08/2019 HISTORY: short of breath TECHNIQUE: AP portable semierect chest at 1045 COMMENT: The opacity which was previously present over the right base is no longer present compared to 05/07/2019. Otherwise there is no evidence of acute cardiac or pulmonary disease. IMPRESSION: No evidence of acute disease. Electronically signed by Abraham Hawley 06/08/2019 10:58 AM
[2019-06-08 11:27] LABS: AGAP 18; ALB/GLOB RATIO 0.9; ALBUMIN 3.5 g/dL (3.5-5.0); ALKALINE PHOSPHATASE 201 U/L (32-122); BUN 19 mg/dL (8-22); CALCIUM 8.7 mg/dL (8.8-10.2); CHLORIDE 91 mmol/L (98-107); CK PROFILE 36 U/L (24-204); COSMO 279; CREATININE 0.9 mg/dL (0.7-1.2); ESTIMATED GFR > 60; GLUCOSE 420 mg/dL (70-104); GOT 11 U/L (10-34); GPT 18 U/L (10-44); POTASSIUM 4.5 mmol/L (3.5-5.1); SODIUM 129 mmol/L (136-145); TCO2 20 mmol/L (25-35); TOTAL BILIRUBIN 0.49 mg/dL (0.20-1.00); TOTAL PROTEIN 7.3 g/dL (6.3-8.3)
[2019-06-08] MEDS ORDERED: NS 1,000 ML IV ONE (11:28)
[2019-06-08] MEDS ORDERED: HUMULIN R SUBQ ONE (11:29)
--- NOTE | 2019-06-08 12:05 | Diag Imaging Result Doc PS360 ---
EXAM: KNEE 3 VIEWS LEFT 06/08/2019 HISTORY: fall, infection, p/o left BKA TECHNIQUE: Left knee three views COMMENT: There are postsurgical changes of below the knee amputation. There are surgical skin clips in place. There is extensive arteriosclerosis. There is no evidence of periosteal reaction or erosion at this time. There is no evidence of effusion fracture or dislocation. There is mild osteophyte formation in the lateral femoral condyle. IMPRESSION: Postsurgical changes. Electronically signed by Abraham Hawley 06/08/2019 12:03 PM
--- NOTE | 2019-06-08 12:50 | PROVIDER DOCUMENTATION ---
This chart was entered by Annie Zamorano Scribe, acting as scribe for Erica Feliz MD. HPI-General Adult - General Chief Complaint: SEPSIS ALERT - D Stated Complaint: FALL, CUT LEG OPEN (RECENT AMPUTATION) Time Seen by Provider: 06/08/19 10:29 Source: patient Allergies/Adverse Reactions: Patient Allergies Allergy/AdvReac Type Severity Reaction Status Date / Time No Known Allergies Allergy Verified 05/07/19 17:23 Home Medications: Home Medication List Medication Instructions Recorded Confirmed Last Taken Type Metformin [Glucophage] 500 mg PO BID 05/07/19 05/07/19 Unknown History Aspirin [Aspirin EC] 81 mg PO DAILY #120 tablet.dr 05/29/19 Unknown Rx Hydrocodone/Acetaminophen [[place] 1 ea PO Q6HR PRN #20 tab 05/29/19 Unknown Rx 7.5-325 Tablet] Insulin Humulin 70/30 [Humulin 20 unit SUBQ QPM #1 insuln.pen 05/29/19 Unknown Rx 70/30] Insulin Humulin 70/30 [Humulin 35 unit SUBQ QAM #1 insuln.pen 05/29/19 Unknown Rx 70/30] Losartan [Cozaar] 50 mg PO DAILY #120 tab 05/29/19 Unknown Rx PRAVAstatin [Pravachol] 40 mg PO QHS #120 tab 05/29/19 Unknown Rx - History of Present Illness -Gen Adult Nature of Presenting Problems: 63yom presents to ED cc bleeding and pain in left BKA stump since falling last night. Pt had the left 2nd & 3rd left toes removed on 05/08/19 and then had to have a left BKA on 05/25/19. When asked about what meds pt is on he responded that he has never been given any but according to previous visits pt is non compliant with his DM meds. Location of Pain/Injury: reports: lower extremity (left BKA stump) Quality of Pain: reports: throbbing Severity: reports: moderate Onset/Duration: reports: last night Timing: reports: still present Modifying Factors: improves with: nothing Similar Symptoms Previously?: No Recently seen or treated by another doctor?: Yes (had a BKA of left on 05/25/19) Review of Systems - Adult - REVIEW OF SYSTEMS - ADULT Constitutional: reports: see HPI. denies: chills, fever, fatique Eyes: reports: no symptoms reported Ears, Nose, Mouth & Throat: reports: no symptoms reported Cardiovascular: reports: see HPI. denies: chest pain Respiratory: reports: no symptoms reported Gastrointestinal: reports: no symptoms reported Genitourinary: reports: no symptoms reported Musculoskeletal: reports: see HPI, other (pain/bleeding from left BKA stump) Integumentary: reports: no symptoms reported Neurological: reports: no symptoms reported Psychiatric: reports: no symptoms reported Endocrine: reports: no symptoms reported Hematologic/Lymphatic: reports: no symptoms reported Allergic/Immunologic: reports: no symptoms reported All Other Systems: Reviewed and Negative Past History - Adult - PAST MEDICAL HISTORY-ADULT Review of Records: reports: Nursing Assessment Review, Medications Reviewed, Social history reviewed & non-contributory. Major Childhood Illnesses: reports: denies history Cardiovascular: reports: denies history Respiratory: reports: denies history Gastrointestinal: reports: denies history Obstetrical/Gynecological: reports: denies history Genitourinary: reports: denies history Musculoskeletal: reports: denies history Neurological: reports: denies history Endocrine/Immune: reports: denies history Other Conditions: reports: denies history - IMMUNIZATION STATUS Childhood Immunizations: See Nurse Assessment Flu Vaccine: See Nurse Assessment - FAMILY HISTORY Family History: reviewed, not pertinent - SOCIAL HISTORY Smoking: denies Physical Exam-General - PHYSICAL EXAM-ADULT Initial Vital Signs Reviewed: Yes - CONSTITUTIONAL General Appearance: alert. negative: anxious, combative - EYES Eyes: PERRL/EOMI, pink conjunctivae - HEAD, EARS, NOSE, MOUTH & THROAT HENMT: normocephalic/atraumatic, moist mucous membranes - RESPIRATORY Respiratory: chest non-tender, lungs clear, normal breath sounds. negative: whe ezing - CARDIOVASCULAR Cardiovascular: normal peripheral pulses, regular rate, rhythm. negative: bradycardia - MUSCULOSKELETAL Extremity: deformity (BKA left), swelling (left), tenderness (left) - SKIN Integumentary: tenderness (left BKA stump), other (left BKA stump; angry, bloody d/c no fluctuanse, gaping; incision stretched). negative: jaundice - PSYCHIATRIC Psych/Mental Status: normal mood/affect, oriented x 3. negative: anxious, disheveled Progress - PLAN OF CARE/RESULTS Progress/Plan/Lab Results: Vital Signs - 8 hr 06/08/19 09:59 06/08/19 10:10 Temperature 98 F Pulse Rate 98 H 93 H Respiratory Rate 22 19 Blood Pressure 137/87 147/95 O2 Sat by Pulse Oximetry 98 98 Laboratory Results - last 24 hr 06/08/19 06/08/19 06/08/19 10:28 10:28 10:28 WBC 8.33 RBC 3.47 L Hgb 9.5 L Hct 29.4 L MCV 84.7 MCH 27.4 MCHC 32.3 L RDW Std Deviation 13.3 Plt Count 295 MPV 9.2 Immature Gran % (Auto) 0.2 Neut % (Auto) 67.2 Lymph % (Auto) 25.0 [place] % (Auto) 6.1 Eos % (Auto) 1.1 Baso % (Auto) 0.4 Immature Gran # (Auto) 0.02 Neut # (Auto) 5.60 Lymph # (Auto) 2.08 [place] # (Auto) 0.51 Eos # (Auto) 0.09 Baso # (Auto) 0.03 PT 15.4 INR 1.20 PTT (Actin FS) 28.7 Troponin T < 0.010 Orders Category Date Time Status Cardiac Monitoring DIRECTED Care 06/08/19 10:06 Active IV Insertion ORDERED Care 06/08/19 10:06 Completed Notify MD of + Sepsis Screen NOW Care 06/08/19 10:06 Active Notify Physician As Ordered Care 06/08/19 10:06 Active CHEST-1 VIEW [RAD] Stat Exams 06/08/19 10:06 Completed BLOOD CULTURE [BLDCUL] Stat Lab 06/08/19 10:28 Results CBC WITH DIFF [HEME] Stat Lab 06/08/19 10:28 Completed CK PROFILE [SP CHEM] Stat Lab 06/08/19 10:28 Received COMPREHENSIVE METABOLIC PANEL [CHEM] Stat Lab 06/08/19 10:28 Received LACTATE, PLASMA [CHEM] Lab 06/08/19 13:15 Uncollected LACTATE, PLASMA [CHEM] Lab 06/08/19 16:15 Uncollected LACTATE, PLASMA [CHEM] Q3H Lab 06/08/19 10:28 Received PROTIME WITH INR [COAG] Stat Lab 06/08/19 10:28 Completed PTT [COAG] Stat Lab 06/08/19 10:28 Completed TROPONIN T Stat Lab 06/08/19 10:28 Completed URINALYSIS W/POSS RFLX CULT [URINALYSIS] Stat Lab 06/08/19 10:06 Uncollected Oxygen Device Stat Oth 06/08/19 10:06 Active Result Diagrams: 06/08/19 10:28 06/08/19 10:28 - XRAY 1 XRAY: Bilateral XRAY Study: Chest Impression: See EMR Report (IMPRESSION: No evidence of acute disease. Electronically signed by Abraham Hawley 06/08/2019 10:58 AM) 2 XRAY: Left XRAY Study: Knee Impression: See EMR Report (IMPRESSION: Postsurgical changes. Electronically signed by Abraham Hawley 06/08/2019 12:03 PM) - CONSULTS/PCP/HOSPITALIST Notification #1 *Consult/PCP/Hospitalist*: d/w Shila ALVAREZ, admit to Dr Fletcher Time Discussed: 12:45 Consult Disposition: Admit Departure - Departure Date of Disposition Decision: 06/08/19 Time of Disposition Decision: 12:44 DIAGNOSIS: Hyperglycemia due to type 2 diabetes mellitus, Wound dehiscence, surgical Disposition: ADMITTED INPATIENT 09 Certified Medical Emergency: Emergent Condition: Stable Additional Instructions: ED Follow Up Instructions: You have been treated by a care provider in the Emergency Department. These instructions are being provided to you so you can have an understanding of how to care for yourself upon discharge. Upon discharge from the Emergency Department, you are responsible for making arrangements for follow-up care by a physician of your choice. Take all prescribed medications as directed. Return to the Emergency Department immediately for any new or worsening symptoms. You may call the Physician Referral phone number at [phone] to obtain a list of Physicians who are taking new patients. Referrals and Follow-Ups: None,PCP [Primary Care Provider] - - Critical Care Note This patient required my direct & personal management of CC.: No Attestation - Physician/ JATINDER Attestation Patient care was provided by Advanced Practice Provider:: No The physician spent face to face time with patient:: Yes Advanced Practice Provider documentation review:: Supervising physician onsite and consulted in the evaluation and care of this patient. The physician did have a face to face encounter with the patient. This chart was documented by the bernard scribe, (Annie Zamorano Scribe) and accurately reflects the services I performed and decisions made by me, Erica Feliz MD, as attested by the provider's signature.
--- NOTE | 2019-06-08 13:54 | HISTORY AND PHYSICAL ---
A 63-year-old who presented to the emergency room. He was initially in the hospital for a left nvzzi-nkd-olfz amputation for I believe a diabetic foot ulcer and he presented stating that his leg was hurting more. His sugar was 400. He did not appear to be in DKA but he did have some dehiscence of the wound. There was some serosanguineous type drainage from around the briseyda so will put him in, Dr. Sandoval did the surgery. I asked wound care Dr. Sandoval look see what they think. I am going to treat him for possible soft tissue infection. Will cover for gram-positive and gram- negative. He did have a history of methicillin-resistant Staph aureus I believe in the wound and previous cultures so put him on vancomycin and Zosyn. PAST MEDICAL HISTORY: Diabetes mellitus type 2 with his sugars are elevated. Not clear whether he is taking his insulin at home. Not sure whether home health has seen him or not. He apparently has diabetic neuropathy and peripheral vascular disease. When he was admitted last time on 05/07/2019 he had subcutaneous emphysema of the dorsum of the plantar aspects midfoot and cellulitis erosive changes of the head of the 2nd proximal phalanx and the base of the 1st proximal phalanx. PAST SURGICAL HISTORY: Left hmztf-udu-zgog amputation. FAMILY HISTORY: Denies family history of diabetes or medical problems. SOCIAL HISTORY: He smokes and drinks alcohol. No illicit drugs. He did not report fever, chills just hurting in his left leg. Did not report any weight gain or loss.GI and : No symptoms reported. Musculoskeletal/neurologic: No focal complaints. Endocrinologic/hemologic: History of diabetes. PHYSICAL EXAMINATION: GENERAL: Awake and alert, oriented x3. Temperature 98 degrees, pulse 90, respirations 18, blood pressure 147/81. Pupils were equal. No distended neck veins. LUNGS: Clear anterolateral. CARDIOVASCULAR: Regular rhythm and rate without murmur or S3. ABDOMEN: Soft. SKIN: Warm and dry. Left leg vilfq-vik-trua amputation. He has a couple areas that appear to have dehisced with some blood-tinged serosanguineous type drainage. I did not see any fluctuance or did not see any caseous material expressed. Weight 130 pounds, height 5 feet 5 inches, O2 saturations 97%. LUNGS: Clear. CARDIOVASCULAR: Regular rhythm, rate without murmur, S3. Carotid and radial pulses 2+ and symmetrical. ABDOMEN: Soft. LAB: White count 8330, hematocrit is 29, hemoglobin 9.5, platelets 295,000. Sodium 129, potassium 4.5, chloride 91, bicarb 20, BUN 19, creatinine 0.9, blood sugar 279, AST was 11, ALT was 18, albumin 3.8, pro time 15.4, PTT was 28. Acetone negative. Chest x-ray, no evidence of acute disease, no infiltrate. Knee x-ray, apparently he fell this morning, he laid on the floor for a little while. Knee x-ray left knee postsurgical changes, extensive arterial sclerosis. No evidence of periosteal reaction or erosion in the bones. No evidence of effusion, fracture, dislocation. There is osteophyte formation in the lateral femoral condyle. ASSESSMENT AND PLAN: 1. Status post yowhk-ufs-nndx amputation, questionable dehiscence of wound. I am going to treat him for possible soft tissue infection, ask Dr. Sandoval just to look at it and have wound care evaluate. 2. Diabetes mellitus type 2. Sugars do not appear to be under good control. Will check a hemoglobin A1c. I think we ought to check a T4, TSH, B12 and folate. We did check a hemoglobin A1c and 10 days ago his hemoglobin A1c was 11 so we will check it again. We will check her T4, TSH, B12, folate, and we will give him something for pain. 3. Peripheral vascular disease. Aware. 4. Recent fall. cc: Varun Willingham MD
[2019-06-08] MEDS ORDERED: ZOFRAN IV PRN (14:05)
[2019-06-08] MEDS ORDERED: TYLENOL PO PRN (14:05)
[2019-06-08] MEDS ORDERED: VANCOMYCIN IV PER PHARMACY MISC SCH (14:05)
[2019-06-08] MEDS: ZOSYN 3.375 GM in NS 50 ML IV SCH ×2 (14:21→21:33)
[2019-06-08] MEDS: NORCO-10 PO PRN ×2 (14:21→21:35)
[2019-06-08] MEDS: NS 1,000 ML IV SCH (14:22)
[2019-06-08] MEDS: LOVENOX SUBQ SCH (14:22)
[2019-06-08] MEDS ORDERED: VANCOMYCIN 1,600 MG in NS 250 ML IV ONE (16:00)
[2019-06-08] MEDS: HUMALOG SUBQ SCH ×2 (17:07→21:33)
--- NOTE | 2019-06-08 17:39 | GENERAL SURGERY CONSULTATION ---
DATE: 06/08/2019 REQUESTING PHYSICIAN: Dr. Willingham. REASON FOR CONSULTATION: Leg wound. HISTORY OF PRESENT ILLNESS: A 63-year-old gentleman well known to me, who I had done a below-the- knee amputation on 05/25/2019. He was recently discharged home. He apparently fell while in the shower. There also have been some issues with his diabetes control. Apparently, when he fell, he had some superficial dehiscence of his wound at the staple line. He was supposed to see me in the office today, but came to the emergency department instead. PAST MEDICAL, PAST SURGICAL, FAMILY, SOCIAL, HOME MEDICATIONS, AND ALLERGIES: Please see previously dictated H and P from his last admission within 30 days. REVIEW OF SYSTEMS: A full 14 systems reviewed are negative except as specified in HPI. PHYSICAL EXAMINATION: Vital Signs: Patient is currently afebrile. His vital signs are stable. General: No acute distress. HEENT: Normocephalic, atraumatic. Pupils equal, round, reactive to light. Mucous membranes moist. Oropharynx benign. Neck: Supple. Trachea midline. Cardiovascular: Regular rate and rhythm. Lungs: Grossly clear. Abdomen: Soft, nontender, nondistended. Extremities: Left ldmzj-hlo-gndw amputation wound reviewed. There are some areas are superficial dehiscence of the skin but no exposed bone. ASSESSMENT AND PLAN: A 63-year-old gentleman with a superficial dehiscence of the skin on below- the-knee amputation site. Wound care. At this time, we will plan on Vashe wet-to-dry daily and see if we get some of the granulation tissue to form. I do not see any exposed bone. He does not have any signs of osteomyelitis on the imaging. I do not think he has soft tissue infection, but I agree with putting him on antibiotics just to play it safe. We will keep dressing taken care of it. cc: Blair Sandoval MD
[2019-06-09] MEDS: NS 1,000 ML IV SCH ×2 (03:47→16:48)
[2019-06-09] MEDS: ZOSYN 3.375 GM in NS 50 ML IV SCH ×3 (03:48→18:21)
[2019-06-09] MEDS: NORCO-10 PO PRN ×2 (06:35→16:51)
[2019-06-09] MEDS: HUMALOG SUBQ SCH ×4 (06:36→22:02)
[2019-06-09 07:09] LABS: HEMOGLOBIN A1C 9.2 % (4.8-6.0)
[2019-06-09 07:20] LABS: BASO# 0.05 X1000 (0.0-0.2); BASO% 0.8 % (0.0-0.8); EOS% 4.6 % (0.0-10.0); HEMOGLOBIN 8.6 g/dL (14.0-18.0); LYMPH# 2.07 X1000 (1.2-3.4); MCH 27.4 PG (27-31); MCHC 31.9 g/dL (33-37); MONO# 0.48 X1000 (0.11-0.59); MONO% 7.4 % (1.7-9.3); NEUT# 3.57 X1000 (1.4-6.5); NEUT% 55.2 % (42.2-75.2); PLT 248 X1000 (130-400); RBC 3.14 XMIL (4.7-6.1); RDW 13.5 % (11.5-14.5); WBC 6.47 X1000 (4.8-10.8)
[2019-06-09 07:23] LABS: AGAP 12; BUN 14 mg/dL (8-22); CALCIUM 7.8 mg/dL (8.8-10.2); CHLORIDE 103 mmol/L (98-107); COSMO 278; CREATININE 0.7 mg/dL (0.7-1.2); ESTIMATED GFR > 60; GLUCOSE 199 mg/dL (70-104); POTASSIUM 3.9 mmol/L (3.5-5.1); SODIUM 136 mmol/L (136-145); TCO2 21 mmol/L (25-35)
[2019-06-09 08:03] LABS: EOS 4 % (1-10); LYMPHS 32 % (21-51); MONO 2 % (1-9); SEGS 62 % (42-75)
--- NOTE | 2019-06-09 10:09 | PROGRESS NOTE ---
DATE: 06/09/2019 SUBJECTIVE: He feels a little better, got a little rest last night. Left diwwj-ckz-cned amputation is wrapped with some evidence of drainage. OBJECTIVE: Vital Signs: Temp 97.9 degrees, pulse 74, respirations 16, blood pressure 122/74. HEENT: Pupils are equal and round. Lungs: Clear in all lung funes. Cardiovascular: Regular rhythm and rate without murmur or S3. Urine output is 1400 mL. Blood sugar 349, 196. ASSESSMENT AND PLAN: 1. Superficial dehiscence of the skin mvyud-zmv-bghu amputation. At this time, I am going to continue with Vashe wash, wet-to-dry dressings, and see if we can get some granulation tissue to form. We are going to continue present antibiotics. I do not see any evidence of deep infection, but may have a soft tissue infection. 2. Diabetes mellitus type 2. Continue to follow sugars. 3. Peripheral vascular disease. 4. Recent fall. REVIEW OF ORDERS: At the present time, he is on Zosyn and vancomycin, getting hydrocodone for pain. cc: Varun Willingham MD
--- NOTE | 2019-06-09 11:44 | GENERAL SURGERY PROGRESS NOTE ---
DATE: 06/09/2019 SUBJECTIVE: Reviewed patient's vital signs which appear to be stable. Reviewed nurses notes. PLAN: At this point, we will continue local wound care. We will reassess the wound tomorrow but will continue Vashe wet-to-dry dressing to try to clean the wound. Hopefully, if it shows some improvement, he can be discharged from the hospital. cc: Blair Sandoval MD
[2019-06-09] MEDS: LOVENOX SUBQ SCH (14:11)
[2019-06-09] MEDS: VANCOMYCIN 1,300 MG in NS 250 ML IV SCH (16:44)
[2019-06-10] MEDS: ZOSYN 3.375 GM in NS 50 ML IV SCH ×4 (01:04→21:30)
[2019-06-10 03:13] LABS: URINE SOURCE CLEAN CATCH
[2019-06-10 03:16] LABS: BILIRUBIN URINE NEGATIVE (NEGATIVE); BLOOD URINE NEGATIVE (NEGATIVE); COLOR YELLOW; GLUCOSE URINE >1000 mg/dL (NEGATIVE); KETONE URINE NEGATIVE (NEGATIVE); LEUKOCYTES URINE NEGATIVE (NEGATIVE); NITRITE URINE NEGATIVE (NEGATIVE); PH URINE 5.5; PROTEIN URINE TRACE mg/dL (NEGATIVE); SP GRAVITY URINE 1.023; TURBIDITY URINE CLEAR (CLEAR); UROBILINOGEN URINE NORMAL (NORMAL)
[2019-06-10 03:17] LABS: UR EPITHELIAL CELLS <10 /HPF (<10); URINE BACTERIA NEGATIVE /HPF; URINE RBC <10 /HPF (<10); URINE WBC <10 /HPF (<10)
[2019-06-10] MEDS: HUMALOG SUBQ SCH ×4 (06:41→21:30)
[2019-06-10] MEDS: NS 1,000 ML IV SCH (06:41)
--- NOTE | 2019-06-10 10:02 | PROGRESS NOTE ---
DATE: 06/10/2019 SUBJECTIVE: He feels much better. He is eating breakfast. His leg is less uncomfortable. OBJECTIVE: Vital Signs: He remains afebrile, temperature 97.9 degrees, pulse 70, respirations 18, blood pressure 109/90. HEENT: Pupils are equal and round. Lungs: Clear in all lung funes. Cardiovascular: Regular rhythm and rate without murmur or S3. Extremities: Left qgxam-wqr-keoh amputation is wrapped. Dressing is dry. His last several sugars are 349, 196, 207, 161. ASSESSMENT AND PLAN: 1. Status post left pmdfe-tzb-bhrv amputation with superficial dehiscence of wound. Continue topical care, the Vashe wash, and wet-to-dry dressing. 2. Diabetes mellitus type 2. Sugar is under better control. 3. Peripheral vascular disease. 4. Recent fall. No sign of fracture or significant injury. REVIEW OF ORDERS: I got him on Zosyn and vancomycin, which I will continue. Hopefully, he can go home Saturday morning. Today is Saturday. cc: Varun Willingham MD
--- NOTE | 2019-06-10 12:25 | GENERAL SURGERY PROGRESS NOTE ---
DATE: 06/10/2019 The patient has been doing relatively well. He has been hemodynamically stable. His wound looks like it is improving. I do not see any signs of additional infection. He does not have a leukocytosis with his most recent white blood cell count being 6 and no left shift. From a surgical point of view, I think he could probably be discharged. I am unsure he needs additional antibiotics at this point. We can continue local wound care with Vashe wet-to-dry, and see him in the [facility]. cc: Blair Sandoval MD
[2019-06-10] MEDS: VANCOMYCIN 1,300 MG in NS 250 ML IV SCH (16:46)
[2019-06-10] MEDS: LOVENOX SUBQ SCH (21:29)
[2019-06-10] MEDS: NORCO-10 PO PRN (21:29)
[2019-06-11] MEDS: NS 1,000 ML IV SCH ×4 (01:33→22:33)
[2019-06-11] MEDS: ZOSYN 3.375 GM in NS 50 ML IV SCH ×4 (01:33→19:45)
[2019-06-11] MEDS: HUMALOG SUBQ SCH ×4 (06:35→22:25)
--- NOTE | 2019-06-11 10:00 | PROGRESS NOTE ---
DATE: 06/11/2019 He looks better. Wound appears better. He is afebrile. Responding to topical care. Hopefully can be discharged tomorrow. PHYSICAL EXAMINATION: Vital signs are stable. Lungs are clear in all lung funes. Cardiovascular exam: Regular rhythm and rate without murmur or S3. Blood sugars appear well-controlled. cc: Varun Willingham MD
--- NOTE | 2019-06-11 12:29 | GENERAL SURGERY PROGRESS NOTE ---
DATE: 06/11/[address] Willingham. Plan to potentially discharge on Saturday. We will recheck the wound tomorrow, on the day of discharge. The patient is currently still not far enough out to remove his remaining briseyda. He will be 3 weeks on the , so when I see him back in the office or preferably at the [facility] for followup, we will remove his remaining briseyda. cc: Blair Sandoval MD
[2019-06-11] MEDS: VANCOMYCIN 1,300 MG in NS 250 ML IV SCH (16:37)
[2019-06-11] MEDS: LOVENOX SUBQ SCH ×2 (19:45→22:33)
[2019-06-11] MEDS: NORCO-10 PO PRN (22:25)
[2019-06-12] MEDS: ZOSYN 3.375 GM in NS 50 ML IV SCH ×3 (02:01→13:00)
[2019-06-12] MEDS: HUMALOG SUBQ SCH ×2 (06:49→11:16)
[2019-06-12] MEDS: NS 1,000 ML IV SCH (06:53)
--- NOTE | 2019-06-12 10:17 | DISCHARGE SUMMARY ---
ADMISSION DATE: 06/08/2019 DISCHARGE DATE: 06/12/2019 HOSPITAL COURSE: This is a 63-year-old initially in the hospital for a left [id number] amputation for diabetic foot ulcer. Just a week before his sugar back then was running high in the 400s. He had DKA and when he presented at this time, his sugar was high at 400 and had superficial dehiscence of the wound. Admitted him to the hospital, put him on some broad-spectrum antibiotics. Blood cultures x2 on the were negative. The patient is still not far enough to remove the remaining briseyda, but his wound looks better and hopefully he can go home today. I will probably put him on Bactrim Double Strength 1 twice a day for another 7 days just to cover for gram-positive organisms. Did not have any culture data to suggest otherwise, and we will continue his current medications at home. I will give him some [place] 10s twenty of them to take as needed for pain, and looks like his blood sugars have been well controlled basically off of insulin. DISCHARGE HOME MEDICINES: Aspirin 81 mg a day. He will go back on his 70/30 Humulin 20 units; I believe he is supposed to take that in the evening and 35 units in the morning, Cozaar 50 mg p.o. daily, Glucophage 500 mg b.i.d., Pravachol 40 mg at bedtime. FOLLOWUP: Follow up with Dr. Sandoval in a week. cc: Varun Willingham MD
[2019-06-12 12:00] VITALS: BP 106/85
--- NOTE | 2019-06-12 13:41 | GENERAL SURGERY PROGRESS NOTE ---
DATE: 06/12/2019 The patient seems to be doing well. His wound seems to be healing. Nurses are changing the dressing on a regular basis. At this point, hopefully, he can go home today. It is okay if he goes home from a surgical point of view. I will need to see him in the office next week, or [facility] following week. cc: Blair Sandoval MD
== END 2019-06-12 15:16 | disposition home health service (06) | DRG 566 ==
LOC: ED 09:49 → 4N 13:37
PROVIDERS: ATTEND Emergency Medicine